=== PATIENT | female | born 1980 | race Caucasian/White ===

== ENCOUNTER 2017-12-01 13:57 | Emergency (ER) | payer OTHER ==
[2017-12-01 14:28] VITALS: BP 114/82
--- NOTE | 2017-12-01 16:26 | UC ---
Reyna Fofana Emily, scribed for Heladio Nelson MD on 12/01/17 at 1456 . Respiratory Complaint HPI - HPI Summary HPI Summary: This patient is a 37 year old F presenting to urgent care accompanied by family with a chief complaint of bilateral cough with yellow sputum that began 1 month ago. The patient rates the pain 6/10 in severity. Symptoms aggravated by nothing. Symptoms alleviated by nothing. Patient reports sore throat, bilateral ear pain, sinus congestion, chest congestion, and wheezing. Pt reports finishing an amoxicillin course 1 week ago. - History of Current Complaint Chief Complaint: UCRespiratory Stated Complaint: THROAT Time Seen by Provider: 12/01/17 14:34 Hx Obtained From: Patient Hx Last Menstrual Period: 10/08/2017 Onset/Duration: Sudden Onset, Lasting Weeks, Still Present Timing: Constant Severity Initially: Moderate Severity Currently: Moderate Pain Intensity: 6 Pain Scale Used: 0-10 Numeric Character: Cough: Productive, Sputum Description: - Yellow Aggravating Factors: Nothing Alleviating Factors: Nothing Associated Signs And Symptoms: Positive: Pleuritic Chest Pain, Wheezing, Nasal Congestion - Allergies/Home Medications Allergies/Adverse Reactions: Allergies Allergy/AdvReac Type Severity Reaction Status Date / Time metoclopramide [From Reglan] Allergy See Comment Verified 12/01/17 14:28 Home Medications: Home Medications Escitalopram Oxalate [Lexapro 20 mg] 20 mg PO DAILY 12/01/17 [History Confirmed 12/01/17] Gabapentin [Neurontin] 300 mg PO TID 12/01/17 [History Confirmed 12/01/17] PMH/Surg Hx/FS Hx/Imm Hx Previously Healthy: Yes Cardiovascular History: Other Other Cardiovascular History: Negative Cancer History: Other Other Cancer History: Negative - Surgical History Surgery Procedure, Year, and Place: TONSILLECTOMY. DNC X2 - Family History Known Family History: Positive: Hypertension - Social History Occupation: Employed Full-time Lives: With Family Alcohol Use: None Substance Use Type: None Substance Use Comment - Amount & Last Used: is in recovery, has been "clean" for 3 years. Smoking Status (MU): Heavy Every Day Tobacco Smoker Amount Used/How Often: 1 PPD Review of Systems ENT: Sore Throat, Ear Ache, Sinus Congestion Respiratory: Cough, Other - Positive chest congestion and wheezing All Other Systems Reviewed And Are Negative: Yes Physical Exam - Summary Physical Exam Summary: General: well-appearing, no pain distress Skin: warm, color reflects adequate perfusion, dry Head: normal Eyes: EOMI, TIFFANI ENT: Positive rhinorrhea, nml TMs, mild posterior pharynx erythema, anterior cervical lymphadenopathy Neck: supple, nontender Respiratory: scattered wheezes, breath sounds present Cardiovascular: RRR Abdomen: soft, nontender Bowel: present Musculoskeletal: normal, strength/ROM intact Neurological: normal, sensory/motor intact, A&O x3 Psychological: affect/mood appropriate Triage Information Reviewed: Yes Vital Signs: Initial Vital Signs Temp 98.5 F 12/01/17 14:22 Pulse 99 12/01/17 14:22 Resp 18 12/01/17 14:22 BP 114/82 12/01/17 14:22 Pulse Ox 100 12/01/17 14:22 Vital Signs Reviewed: Yes UC Diagnostic Evaluation - Laboratory O2 Sat by Pulse Oximetry: 100 Respiratory Course/Dx - Course Course Of Treatment: BP noted and advised to follow up with PCP. Medications reviewed. Allergies reviewed - Differential Dx/Diagnosis Provider Diagnoses: BRONCHITIS WITH BRONCHOSPASM. Elevated BP without a dx of HTN Discharge - Discharge Plan Condition: Stable Disposition: HOME Prescriptions: Albuterol HFA INHALER* [Ventolin HFA Inhaler*] 2 puff INH Q4H PRN #1 mdi PRN Reason: Wheezing Azithromyxin TRAVON (NF) [Z-Travon (Zithromax) 250 mg tabs #6] 2 tab PO .TODAY, THEN 1 DAILY #6 tab Patient Education Materials: Acute Bronchitis (ED), Bronchospasm (ED) Referrals: Alix Smith [employer] [Primary Care Provider] - Additional Instructions: FOLLOW UP WITH YOUR DOCTOR. RETURN TO THE EMERGENCY DEPARTMENT FOR ANY WORSENING OF YOUR CONDITION OR QUESTIONS OR CONCERNS. YOUR BLOOD PRESSURE WAS ELEVATED DURING TODAY'S VISIT; FOLLOW UP WITH YOUR PCP WITHIN ONE WEEK FOR FURTHER EVALUATION. The documentation as recorded by the Reyna betts Emily accurately reflects the service I personally performed and the decisions made by me, Heladio Nelson MD.
== END 2017-12-01 15:22 | disposition home or self-care (01) ==
LOC: UCEAST 13:57
DX: J20.9 Acute bronchitis, unspecified (principal); R03.0 Elevated blood-pressure reading, without diagnosis of hypertension; H92.03 Otalgia, bilateral; R09.81 Nasal congestion; Z88.8 Allergy status to other drugs, medicaments and biological substances
CPT/HCPCS: 99212; G0463

== ENCOUNTER 2018-01-28 16:39 | Emergency (ER) | payer SELFPAY ==
--- NOTE | 2018-01-28 17:14 | UC ---
UC Dental HPI - HPI Summary HPI Summary: Pt presents with dental pain to right lower tooth. Says that she has a bad tooth here that she knows she needs to see the dentist for, but has been increasing in pain over the last 4-5 days. Noticed some swelling and drainage from the bottom of the tooth yesterday - thinks its infected. Still eating and drinking without difficulty. Denies fever/chills. - History of Current Complaint Hx Obtained From: Patient Hx Last Menstrual Period: 01/22/2018 Onset/Duration: Gradual Onset Severity: Moderate Pain Intensity: 6 Pain Scale Used: 0-10 Numeric <Basilio Gordillo - Last Filed: 01/28/18 18:08> <Sveta Gallo - Last Filed: 01/28/18 20:12> - History of Current Complaint Chief Complaint: UCGeneralIllness Stated Complaint: DENTAL COMPLAINT - Allergies/Home Medications Allergies/Adverse Reactions: Allergies Allergy/AdvReac Type Severity Reaction Status Date / Time metoclopramide [From Reglan] Allergy See Comment Verified 12/01/17 14:28 Home Medications: Home Medications Naproxen Sodium [Aleve] 01/28/18 [History] PMH/Surg Hx/FS Hx/Imm Hx Respiratory History: Asthma Psychological History: Anxiety - Surgical History Surgical History: None Surgery Procedure, Year, and Place: TONSILLECTOMY. DNC X2 - Family History Known Family History: Positive: Hypertension - Social History Lives: With Family Alcohol Use: None Substance Use Type: None Substance Use Comment - Amount & Last Used: is in recovery, has been "clean" for 3 years. Smoking Status (MU): Heavy Every Day Tobacco Smoker Amount Used/How Often: 1 PPD <Basilio Gordillo - Last Filed: 01/28/18 18:08> Review of Systems Constitutional: Negative Skin: Negative Eyes: Negative ENT: Dental Pain Respiratory: Negative Cardiovascular: Negative Neurovascular: Negative Musculoskeletal: Negative Neurological: Negative Psychological: Negative All Other Systems Reviewed And Are Negative: Yes <Basilio Gordillo - Last Filed: 01/28/18 18:08> Physical Exam Triage Information Reviewed: Yes Appearance: Well-Appearing, No Pain Distress, Well-Nourished Vital Signs: Initial Vital Signs Temp 97.4 F 01/28/18 17:03 Pulse 84 01/28/18 17:03 Resp 16 01/28/18 17:03 BP 107/70 01/28/18 17:03 Pulse Ox 99 01/28/18 17:03 Eyes: Positive: Conjunctiva Clear. Negative: Conjunctiva Inflamed, Discharge ENT: Positive: Pharynx normal, TMs normal, Dental tenderness - Tooth 29, Uvula midline. Negative: Pharyngeal erythema, TM bulging, TM dull, TM red Dental: Positive: Percussion Tenderness @ - Tooth 29, Gross Decay/Caries @ - Throughout, Dental Fracture @ - Tooth 29, Abscess @ - Tooth 29, Cellulitis @ - Tooth 29. Negative: Cervical Lymphadenopathy, Bleeding Neck: Positive: Supple, Nontender, No Lymphadenopathy Respiratory: Positive: Lungs clear, Normal breath sounds, No respiratory distress, No accessory muscle use Cardiovascular: Positive: RRR, No Murmur, Pulses Normal Neurological: Positive: Alert Psychological: Positive: Age Appropriate Behavior Skin: Negative: rashes <Basilio Gordillo - Last Filed: 01/28/18 18:08> Vital Signs: Initial Vital Signs Temp 97.4 F 01/28/18 17:03 Pulse 84 01/28/18 17:03 Resp 16 01/28/18 17:03 BP 107/70 01/28/18 17:03 Pulse Ox 99 01/28/18 17:03 <Sveta Gallo - Last Filed: 01/28/18 20:12> Dental Complaint Course/Dx - Course Course Of Treatment: Dental abscess Tooth 29 - Augmentin and f/u with dentist LAUREEN - Differential Dx/Diagnosis Provider Diagnoses: Dental abscess Tooth 29 <Basilio Gordillo - Last Filed: 01/28/18 18:08> Discharge - Sign-Out/Discharge Documenting (check all that apply): Discharge/Admit/Transfer - Billing Disposition and Condition Condition: STABLE Disposition: HOME <Basilio Gordillo - Last Filed: 01/28/18 18:08> - Billing Disposition and Condition Condition: STABLE Disposition: HOME <Sveta Gallo - Last Filed: 01/28/18 20:12> - Discharge Plan Condition: Stable Disposition: HOME Prescriptions: Amoxicillin/Clavulanate TAB* [Augmentin TAB 875*] 875 mg PO BID #14 tab Patient Education Materials: Dental Abscess (ED) Referrals: Kenny MALDONADO,Vinayak F. [Primary Care Provider] - Additional Instructions: If you develop a fever, shortness of breath, chest pain, new or worsening symptoms - please call your PCP or go to the ED. 1) Please schedule an appointment with your dentist as soon as possible Attestation Statement User Type: Provider - I was available for consult. This patient was seen by the KRISTA. The patient was not presented to, seen by, or examined by me. -Ryley <Sveta Gallo - Last Filed: 01/28/18 20:12>
[2018-01-28 17:27] VITALS: BP 107/70
== END 2018-01-28 17:49 | disposition home or self-care (01) ==
LOC: UCEAST 16:39
DX: K04.7 Periapical abscess without sinus (principal); J45.909 Unspecified asthma, uncomplicated; F41.9 Anxiety disorder, unspecified; Z88.8 Allergy status to other drugs, medicaments and biological substances; F17.210 Nicotine dependence, cigarettes, uncomplicated
CPT/HCPCS: 99212; G0463

== ENCOUNTER 2018-07-02 23:15 | Inpatient (IN) | payer OTHER ==
[2018-07-03] MEDS ORDERED: NS 0.9% 1000 ML* 1,000 ML IV ONE ×2 (01:23→02:01)
--- NOTE | 2018-07-03 01:38 | ED ---
Throat Pain/Nasal Congestion - HPI Summary HPI Summary: Complains of mouth lesions, dental pain x 4 days, being told by dentist she has oral cancer and being told by [facility] ED that she has acute renal failure. Patient went to [facility] ED today for dental pain and left [facility] ED early to go turkey picker her son and was called later and told she had acute renal failure. Denies fever, cough, sore throat, CP, SOB, N/V/D, abdominal pain, change in urine, change in BM. Medical history is anxiety depression. An anonymous call was placed to ED stating patient Markus Blancas was taking crocodil. - History of Current Complaint Chief Complaint: EDGeneral Time Seen by Provider: 07/03/18 01:04 Hx Obtained From: Patient Onset/Duration: Gradual Onset, Lasting Days Severity: Severe Associated Signs And Symptoms: Positive: Negative Cough: None - Allergies/Home Medications Allergies/Adverse Reactions: Allergies Allergy/AdvReac Type Severity Reaction Status Date / Time metoclopramide [From Reglan] Allergy See Comment Verified 07/02/18 23:21 PMH/Surg Hx/FS Hx/Imm Hx Endocrine/Hematology History: Denies: Hx Diabetes Cardiovascular History: Denies: Hx Hypertension Respiratory History: Denies: Hx Chronic Obstructive Pulmonary Disease (COPD) History: Denies: Hx Dialysis Neurological History: Denies: Hx CVA - Surgical History Surgery Procedure, Year, and Place: TONSILLECTOMY. DNC X2 Infectious Disease History: No Infectious Disease History: Denies: Traveled Outside the [place] in Last 30 Days - Family History Known Family History: Positive: Hypertension - Social History Alcohol Use: None Substance Use Type: Reports: Marijuana Substance Use Comment - Amount & Last Used: is in recovery, has been "clean" for 3 years. Smoking Status (MU): Heavy Every Day Tobacco Smoker Amount Used/How Often: 1 PPD Review of Systems Constitutional: Negative Eyes: Negative Positive: Dental Pain Cardiovascular: Negative Respiratory: Negative Gastrointestinal: Negative Genitourinary: Negative Musculoskeletal: Negative Positive: Rash, Bruising Neurological: Negative Positive: Anxious All Other Systems Reviewed And Are Negative: Yes Physical Exam - Summary Physical Exam Summary: Patient has multiple white lesions in her mouth along bilateral lateral border of tongue, bilateral posterior columns, vesicular lesions along the nuchal membrane under superior and inferior lip.. Multiple areas of probable bruising on bilateral lower extremities. Patient is extremely fidgety. Alert and oriented, responding appropriately. Abdomen soft nontender. Lung sounds clear to auscultation bilaterally. Triage Information Reviewed: Yes Vital Signs On Initial Exam: Initial Vitals Temp Pulse Resp BP Pulse Ox 98.4 F 116 22 132/110 98 07/02/18 23:16 07/02/18 23:16 07/02/18 23:16 07/02/18 23:16 07/02/18 23:16 Vital Signs Reviewed: Yes Appearance: Positive: Well-Appearing Skin: Positive: Warm Head/Face: Positive: Normal Head/Face Inspection Eyes: Positive: Normal ENT: Negative: Trismus, Muffled voice Dental: Positive: Other Neck: Positive: Supple Respiratory/Lung Sounds: Positive: Clear to Auscultation Cardiovascular: Positive: Normal Abdomen Description: Positive: Nontender Musculoskeletal: Positive: Normal Neurological: Positive: Normal Psychiatric: Positive: Normal AVPU Assessment: Alert - [place] Coma Scale Best Eye Response: 4 - Spontaneous Best Motor Response: 6 - Obeys Commands Best Verbal Response: 5 - Oriented Coma Scale Total: 15 Diagnostics - Vital Signs Vital Signs Temp Pulse Resp BP Pulse Ox 07/03/18 01:07 98 96 07/02/18 23:16 98.4 F 116 22 132/110 98 - Laboratory Result Diagrams: 07/03/18 01:46 07/03/18 01:46 Lab Statement: Any lab studies that have been ordered have been reviewed, and results considered in the medical decision making process. - Radiology cxr Xray Interpretation: No Acute Changes Radiology Interpretation Completed By: ED Physician EENT Course/Dx - Course Course Of Treatment: Complains of mouth lesions, dental pain x 4 days, being told by dentist she has oral cancer and being told by [facility] ED that she has acute renal failure. Patient went to [facility] ED today for dental pain and left [facility] ED early to go turkey picker her son and was called later and told she had acute renal failure. Denies fever, cough, sore throat, CP, SOB, N/ V/D, abdominal pain, change in urine, change in BM. Medical history is anxiety depression. An anonymous call was placed to ED stating patient Marksu Blancas was taking crocodil. Physical exam:Patient has multiple white lesions in her mouth along bilateral lateral border of tongue, bilateral posterior columns, vesicular lesions along the nuchal membrane under superior and inferior lip.. Multiple areas of probable bruising on bilateral lower extremities. Patient is extremely fidgety. Alert and oriented, responding appropriately. Abdomen soft nontender. Lung sounds clear to auscultation bilaterally. Vital signs within normal limits. CK 1751. Creatinine 1.8. Elevated CRP. White count 18. Patient given 2 L of fluid. Diagnosis rhabdomyolysis, acute renal insufficiency , thrush. - Diagnoses Provider Diagnoses: Rhabdomyolysis, Acute renal insufficiency, Thrush Discharge - Sign-Out/Discharge Documenting (check all that apply): Patient Departure - Discharge Plan Condition: Stable Disposition: ADMITTED TO [facility] Referrals: No Primary Care Phys,NOPCP [Primary Care Provider] - - Billing Disposition and Condition Condition: STABLE Disposition: Admitted to [facility]
[2018-07-03 01:58] LABS: Hematocrit 37 % (35-47); Hemoglobin 12.5 g/dl (12.0-16.0); Mean Corpuscular HGB Conc 34 g/dl (31-36); Mean Corpuscular Hemoglobin 29 pg (27-31); Mean Corpuscular Volume 86 fL (80-97); Mean Platelet Volume 8.4 um3 (7.4-10.4); Platelet Count 278 10^3/ul (150-450); Red Blood Count 4.26 10^6/ul (4.00-5.40); Red Cell Distribution Width 14 % (10.5-15); White Blood Count 18.8 10^3/ul (3.5-10.8)
[2018-07-03 02:05] LABS: ABS Neutrophils 16.2 10^3/ul (1.5-7.7)
[2018-07-03 02:18] LABS: EGFR Non-African American 31.5 (>60)
[2018-07-03 02:21] LABS: ABS Basophils 0.2 10^3/ul (0-0.2); ABS Eosinophils 0.1 10^3/ul (0-0.6); ABS Lymphocytes 0.6 10^3/ul (1.0-4.8); ABS Monocytes 1.8 10^3/ul (0-0.8); ABS Nucleated RBC 0 10^3/ul; Eosinophil % 0.3 % (0-6); Lymphocyte % 3.2 % (25-47); Nucleated Red Blood Cells % 0
[2018-07-03] MEDS ORDERED: Mouth Piece, Nicotine* 1 EACH CARTRIDGE INH PRN (04:46)
[2018-07-03] MEDS ORDERED: Nicotine Inhaler* 10 MG AMP INH PRN (04:46)
--- NOTE | 2018-07-03 04:51 | HP ---
H&P (Free Text) History and Physical: PCP: none Date/Time: 07/03/2018 0410 CC: abnormal labs HPI: Mrs Blancas is a 38YO obese female HX IV drug abuse who claims 6 years sobriety up until this past weekend when she snorted cocaine. She is very fidgety and exceedingly tangential making obtaining a history challenging. For some reason she cannot fully explain she was at [facility] Sunday having labs drawn. This may have been an ED visit for oral pain related to a tooth extraction done on Sunday. At any rate after leaving, she was called and informed her renal function was poor and recommended returning to the ED. As at the time [facility] was closer to her, she came here. At one point she states the dentist told her she had oral cancer, but denies any biopsy having been done. She has painless necrosis of multiple fingertips which she is adamant is due to "digging at my sharp teeth". She endorses subjective F/C, sweats, light-headedness, and oral pain, but denies chest pain, SOB, changes in bowel/bladder, or other issues. At one point she told me she moved this past weekend after learning her had cheated on her, but at another time stated that she "didn't really move" when I was attempting to clarify the extent of lifting/carrying as her total CK is elevated. PMedHx polysubstance abuse, ongoing/relapsed Ambulatory Orders Escitalopram Oxalate [Lexapro 20 mg] 20 mg PO DAILY 12/01/17 Gabapentin [Neurontin] 800 mg PO TID 12/01/17 Klonopin TAB(*) 1 mg PO BEDTIME 07/03/18 Ranitidine TAB (NF) 150 mg PO DAILY 07/03/18 Suboxone 4 mg-1 mg Sl Film 1 tab PO DAILY 07/03/18 Allergies metoclopramide [From Reglan] Allergy (Verified 07/03/18 03:08) numbness to legs and difficulty breathing PSurgHx tonsillectomy SocHx: 1PPD cigarettes, denies alcohol, admits to recent snorted cocaine with history of meth/heroine/crack; full code status FamHx: denies any known family medical history ROS: as above, otherwise reviewed and all were negative vitals: Vital Signs Temp 36.9 C 07/02/18 23:16 Pulse 98 07/03/18 01:07 Resp 22 07/02/18 23:16 BP 132/110 07/02/18 23:16 Pulse Ox 96 07/03/18 01:07 Intake & Output 07/02/18 07/02/18 07/03/18 11:59 23:59 11:59 Intake Total 1999 Balance 1999 Weight 74.843 kg Intake: IV Fluids 1999 Constitutional: NAD, normally developed, unkempt obese white female HEENM: atraumatic; sclera/conjunctiva: anicteric/mildly injected OU; hearing: clinically intact; oropharynx: very poor dentition, pharyngeal erythema with sporadic whitish plaques, R oral angle with ring-like centrally clearing erythematous scaling lesion Neck: soft tissue: no nuchal rigidity; thyroid: normal Pulmonary: clear to auscultation bilaterally, good aeration, no accessory muscle use CV: RR/RR, normal S1S2, no carotid bruit, no jugular venous distention, 2+ B DP/ PT, no edema Abdominal: soft, non-distended, non-tender, no rebound/guarding/rigidity, normoactive bowel sounds, no hepatosplenomegaly or masses, no costovertebral angle tenderness Musculoskeletal: general: grossly intact, non-tender Integumental: as above, multiple fingertips L>R with painless necrosis, bruising scattered of various ages Psychiatric orientation: AA&O to PP, loosely to situation affect: agitated/fidgety mood: cooperative to mildly confrontational eye contact: fair to poor content: unreliable responses: timely, but highly tangential insight: poor Testing: Lab Results 07/03/18 07/03/18 07/03/18 Range/Units 01:46 01:46 01:46 WBC 18.8 H (3.5-10.8) 10^3/ul RBC 4.26 (4.00-5.40) 10^6/ul Hgb 12.5 (12.0-16.0) g/dl Hct 37 (35-47) % MCV 86 (80-97) fL MCH 29 (27-31) pg MCHC 34 (31-36) g/dl RDW 14 (10.5-15) % Plt Count 278 (150-450) 10^3/ul MPV 8.4 (7.4-10.4) um3 Neut % (Auto) 86.0 H (38-83) % Lymph % (Auto) 3.2 L (25-47) % [place] % (Auto) 9.3 H (0-7) % Eos % (Auto) 0.3 (0-6) % Baso % (Auto) 1.2 (0-2) % Absolute Neuts (auto) 16.2 H (1.5-7.7) 10^3/ul Absolute Lymphs (auto) 0.6 L (1.0-4.8) 10^3/ul Absolute Monos (auto) 1.8 H (0-0.8) 10^3/ul Absolute Eos (auto) 0.1 (0-0.6) 10^3/ul Absolute Basos (auto) 0.2 (0-0.2) 10^3/ul Absolute Nucleated RBC 0 10^3/ul Nucleated RBC % 0 Sodium 135 (135-145) mmol/L Potassium 3.5 (3.5-5.0) mmol/L Chloride 105 (101-111) mmol/L Carbon Dioxide 19 L (22-32) mmol/L Anion Gap 11 (2-11) mmol/L BUN 21 (6-24) mg/dL Creatinine 1.81 H (0.51-0.95) mg/dL Est GFR ( Amer) 38.1 (>60) Est GFR (Non-Af Amer) 31.5 (>60) BUN/Creatinine Ratio 11.6 (8-20) Glucose 121 H (70-100) mg/dL Lactic Acid 0.6 (0.5-2.0) mmol/L Calcium 9.2 (8.6-10.3) mg/dL Total Bilirubin 0.80 (0.2-1.0) mg/dL AST 91 H (13-39) U/L ALT 60 H (7-52) U/L Alkaline Phosphatase 116 H (34-104) U/L Total Creatine Kinase 1751 H (10-223) U/L C-Reactive Protein 271.79 H (<8.01) mg/L Total Protein 7.1 (6.4-8.9) g/dL Albumin 4.2 (3.2-5.2) g/dL Globulin 2.9 (2-4) g/dL Albumin/Globulin Ratio 1.4 (1-3) Lipase < 10 L (11.0-82.0) U/L Beta HCG, Quant 0.70 mIU/mL HIV 1&2 Antibody Rapid (Nonreactive) 07/03/18 Range/Units 01:46 WBC (3.5-10.8) 10^3/ul RBC (4.00-5.40) 10^6/ul Hgb (12.0-16.0) g/dl Hct (35-47) % MCV (80-97) fL MCH (27-31) pg MCHC (31-36) g/dl RDW (10.5-15) % Plt Count (150-450) 10^3/ul MPV (7.4-10.4) um3 Neut % (Auto) (38-83) % Lymph % (Auto) (25-47) % [place] % (Auto) (0-7) % Eos % (Auto) (0-6) % Baso % (Auto) (0-2) % Absolute Neuts (auto) (1.5-7.7) 10^3/ul Absolute Lymphs (auto) (1.0-4.8) 10^3/ul Absolute Monos (auto) (0-0.8) 10^3/ul Absolute Eos (auto) (0-0.6) 10^3/ul Absolute Basos (auto) (0-0.2) 10^3/ul Absolute Nucleated RBC 10^3/ul Nucleated RBC % Sodium (135-145) mmol/L Potassium (3.5-5.0) mmol/L Chloride (101-111) mmol/L Carbon Dioxide (22-32) mmol/L Anion Gap (2-11) mmol/L BUN (6-24) mg/dL Creatinine (0.51-0.95) mg/dL Est GFR ( Amer) (>60) Est GFR (Non-Af Amer) (>60) BUN/Creatinine Ratio (8-20) Glucose (70-100) mg/dL Lactic Acid (0.5-2.0) mmol/L Calcium (8.6-10.3) mg/dL Total Bilirubin (0.2-1.0) mg/dL AST (13-39) U/L ALT (7-52) U/L Alkaline Phosphatase (34-104) U/L Total Creatine Kinase (10-223) U/L C-Reactive Protein (<8.01) mg/L Total Protein (6.4-8.9) g/dL Albumin (3.2-5.2) g/dL Globulin (2-4) g/dL Albumin/Globulin Ratio (1-3) Lipase (11.0-82.0) U/L Beta HCG, Quant mIU/mL HIV 1&2 Antibody Rapid Nonreactive (Nonreactive) ECG, personally reviewed: sinus RBBB rate 94, no ischemia CXR, personally reviewed: no acute process Impression: 38YO female HX polysubstance abuse presenting with renal dysfunction of uncertain acuteness along with an elevated total CK and likely either currently intoxicated or withdrawing. DIAGNOSIS & PLAN Primary necrotic fingertips : although painless, concerning for endocarditis; ? Krokodil although patient denies : blood CXs : check ECHO : empiric vancomycin & cefepime IV renal dysfunction : renal US in AM : renal diet : IVFs, trend : consider nephrology consult pending above : avoid nephrotoxic agents rhabdomyolysis : IVFs, trend total CK polysubstance abuse, active : safety monitor w/ behavioral disturbance : continue suboxone elevated ALT/AST : check hepatitis titers, trend oral & barbi-oral candidiasis : check HIV : ketoconazole PO : consider ID consult Secondary tobacco use disorder : nicotine replacement : cessation recommended, no motivation Admission Rational: Inpatient as without the above interventions the risk of impending adverse outcome is unacceptably high; inappropriate for the outpatient setting DVTp: MAG Code Status: full
[2018-07-03] MEDS ORDERED: Melatonin 3 MG TAB PO PRN (04:58)
[2018-07-03] MEDS ORDERED: Acetaminophen TAB* 325 MG PO PRN (04:58)
[2018-07-03] MEDS ORDERED: Ondansetron ODT TAB* 4 MG PO PRN (04:58)
[2018-07-03] MEDS ORDERED: Fluconazole 100 MG TAB* TAB PO SCH (05:00)
[2018-07-03] MEDS ORDERED: Vancomycin per Pharmacy* NOTE FOLLOW UP SCH (05:00)
[2018-07-03] MEDS ORDERED: Cefepime(*) 1 GM in NS 0.9% 50 ML* 50 ML IVPB SCH (05:00)
[2018-07-03] MEDS ORDERED: Cefepime(*) 2 GM in NS 0.9% 50 ML* 50 ML IVPB SCH (05:30)
[2018-07-03] MEDS: Omeprazole CAP* 20 MG PO SCH (05:52)
[2018-07-03] MEDS: NS 0.9% 1000 ML* 1,000 ML IV SCH (05:57)
[2018-07-03] MEDS ORDERED: Vancomycin(*) 1,000 MG in NS 0.9% 250 ML* 250 ML IVPB ONE (06:00)
[2018-07-03 07:35] LABS: Urine Appearance Clear; Urine Blood 2+ (Negative); Urine Color Yellow; Urine Ketones Negative (Negative); Urine Protein Negative (Negative); Urine Specific Gravity 1.013 (1.010-1.030); Urine Urobilinogen Negative (Negative)
--- NOTE | 2018-07-03 07:42 | RAD ---
HISTORY: sob COMPARISONS: None VIEWS: 1: frontal portable view of the chest at 2:10 AM FINDINGS: LINES AND TUBES: None. CARDIOMEDIASTINAL SILHOUETTE: The cardiomediastinal silhouette is normal for portable technique. PLEURA: The costophrenic angles are sharp. No pleural abnormalities are noted. LUNG PARENCHYMA: The lungs are clear. ABDOMEN: The upper abdomen is clear. There is no subphrenic gas. BONES AND SOFT TISSUES: No bone or soft tissue abnormalities are noted. IMPRESSION: NO ACTIVE CARDIOPULMONARY DISEASE. R0
[2018-07-03 07:46] LABS: Urine Red Blood Cell Trace(0-2/hpf) (Absent); Urine White Blood Cell Trace(0-5/hpf) (Absent)
--- NOTE | 2018-07-03 07:47 | RAD ---
INDICATION: Renal dysfunction. COMPARISON: There are no relevant prior studies available for comparison. TECHNIQUE: Multiple real-time images of the kidneys were obtained. FINDINGS: The kidneys are normal in size shape and echogenicity. The right kidney measured 11.2 x 4.2 x 4.7 cm and the left kidney measured 11.2 x 4.2 x 4.3 cm. No significant focal abnormality or hydronephrosis is seen. IMPRESSION: NEGATIVE EXAM.
[2018-07-03 08:01] LABS: ABS Basophils 0 10^3/ul (0-0.2); ABS Eosinophils 0.1 10^3/ul (0-0.6); ABS Lymphocytes 0.9 10^3/ul (1.0-4.8); ABS Neutrophils 9.1 10^3/ul (1.5-7.7); ABS Nucleated RBC 0 10^3/ul; Eosinophil % 0.7 % (0-6); Hematocrit 32 % (35-47); Hemoglobin 10.6 g/dl (12.0-16.0); Lymphocyte % 8.2 % (25-47); Mean Corpuscular HGB Conc 34 g/dl (31-36); Mean Corpuscular Hemoglobin 29 pg (27-31); Mean Corpuscular Volume 88 fL (80-97); Mean Platelet Volume 8.3 um3 (7.4-10.4); Nucleated Red Blood Cells % 0; Platelet Count 228 10^3/ul (150-450); Red Blood Count 3.61 10^6/ul (4.00-5.40); Red Cell Distribution Width 14 % (10.5-15); White Blood Count 11.2 10^3/ul (3.5-10.8)
[2018-07-03 08:20] LABS: EGFR Non-African American 56.5 (>60)
--- NOTE | 2018-07-03 09:00 | ECHO ---
Patient: RANJANA MARIE [facility] Rec#: [id number] : 1980 Date: 07/03/2018 Age: 38y Height: 160.02 cm / 63.0 in Weight: 74.84 kg / 164.9 lbs Sex: F BSA: 1.78 Room#: 417 Admit Date#: 07/03/2018 Type: Inpatient Referring: Juan Flores MD Reading: Gail Keller MD Campus Recruiter[facility] Tran[facility]horacic Echocardiogram Indication: Valvular disease BP: 124/64 HR: 94 Rhythm: NSR Findings History: Polysubstance use, smoker, acute renal failure. Technical Comments: The study quality is good. Completed at 0830. Left Ventricle: The left ventricular chamber size is normal. There is no left ventricular hypertrophy. Global left ventricular wall motion and contractility are within normal limits. There is normal left ventricular systolic function. The estimated ejection fraction is 60-65%. There is no consistent Doppler evidence of clinically significant diastolic dysfunction. Left Atrium: The left atrium is mildly dilated. Right Ventricle: The right ventricular cavity size is normal. The right ventricular global systolic function is normal. Right Atrium: The right atrium is mildly dilated. Aortic Valve: The aortic valve is trileaflet. The aortic valve leaflets are mildly thickened. There is a trace of aortic regurgitation. There is no evidence of aortic stenosis. Mitral Valve: The mitral valve leaflets are mildly thickened. There is trace to mild mitral regurgitation. There is no evidence of mitral stenosis. Tricuspid Valve: The tricuspid valve leaflets are mildly thickened. There is mild tricuspid regurgitation. The right ventricular systolic pressure is estimated at 38 mmHg. There is evidence of mild pulmonary hypertension. There is no tricuspid stenosis. Pulmonic Valve: The pulmonic valve appears normal. There is mild pulmonic regurgitation. There is no pulmonic stenosis. Pericardium: There is no significant pericardial effusion. Aorta: There is no dilatation of the ascending aorta. There is no dilatation of the aortic arch. The aortic root is normal in size. Pulmonary Artery: The main pulmonary artery is not well visualized. Venous: The inferior vena cava is dilated. There is a greater than 50% respiratory change in the inferior vena cava dimension. Conclusions The left ventricular chamber size is normal. Global left ventricular wall motion and contractility are within normal limits. The estimated ejection fraction is 60-65%. Mild biatrial enlargement. The right ventricular global systolic function is normal. There is a trace of aortic regurgitation. There is trace to mild mitral regurgitation. There is mild tricuspid regurgitation. There is evidence of mild pulmonary hypertension: estimated at 38 mmHg. No prior echo to compare. Measurements Name Value Normal Range RVIDd (AP) 2D 2.5 cm (0.9 - 2.6) RVDdMajor (2D) 3.3 cm (2.2 - 4.4) RAd ISD 4CH 5 cm (3.4 - 4.9) RA (A4C)W 4.1 cm (2.9 - 4.6) IVSd (2D) 1 cm (0.6 - 1) LVPWd (2D) 0.7 cm (0.6 - 1) LVIDd (2D) 5.2 cm (3.6 - 5.4) LVIDs (2D) 3 cm - LV FS (2D) 43 % (25 - 45) Aortic Annulus 1.8 cm (1.4 - 2.6) Ao root diameter (2D) 2.5 cm (2.1 - 3.5) Ascending Ao 2.9 cm (2.1 - 3.4) Aortic arch 2.1 cm (1.8 - 3.4) LA dimension (AP) 2D 4.1 cm (2.3 - 3.8) LAd ISD 4CH 4.9 cm (2.9 - 5.3) LA ISD 4CH W 4 cm (2.5 - 4.5) Name Value Normal Range LA ESV SP 4CH (A/L) 62 ml - LA ESV SP 2CH (A/L) 70 ml - LA ESV BP (A/L) 68 ml - LA ESV BP (A/L) index 38 ml/m2 - LA ESV SP 4CH (MOD) 58 ml - LA ESV SP 2CH (MOD) 66 ml - Name Value Normal Range MV E-wave Vmax 1.05 m/sec - MV deceleration time 192.3 msec - MV A-wave Vmax 0.82 m/sec - MV E:A ratio 1.2 ratio - LV septal e' Vmax 0.12 m/sec - LV lateral e' Vmax 0.13 m/sec - LV E:e' septal ratio 8.75 ratio - LV E:e' lateral ratio 8.08 ratio - Name Value Normal Range AV Vmax 1.8 m/sec - AV VTI 37.35 cm - AV peak gradient 12.31 mmHg - AV mean gradient 6.77 mmHg - LVOT Vmax 1.41 m/sec - LVOT VTI 30.52 cm - LVOT peak gradient 8.04 mmHg - LVOT mean gradient 4.93 mmHg - KAMRAN Vmax 1.3 m/sec - Name Value Normal Range TR Vmax 2.7 m/sec - TR peak gradient 30 mmHg - RAP 8 mmHg - RVSP 38 mmHg - IVC diameter 2.2 cm - Name Value Normal Range PV Vmax 0.82 m/sec - PV peak gradient 2.69 mmHg -
[2018-07-03] MEDS: Gabapentin CAP(*) 400 MG PO SCH ×3 (09:06→21:33)
[2018-07-03] MEDS: Citalopram TAB* 40 MG PO SCH (09:08)
[2018-07-03] MEDS: Buprenorphine/Naloxone 8-2 MG SL TAB* 1 TAB PO SCH (09:13)
[2018-07-03] MEDS ORDERED: NS 0.9% 1000 ML* 2,000 ML IV ONE (12:12)
[2018-07-03] MEDS: Nystatin SUSPENSION* 100000 UNITS/ML 5 ML UDC PO SCH ×3 (14:32→21:39)
[2018-07-03] MEDS: Vancomycin(*) 1,000 MG in NS 0.9% 250 ML* 250 ML IVPB SCH ×2 (14:47→21:28)
[2018-07-03] MEDS ORDERED: Ketorolac INJ* 30 MG/ML 1 ML VIAL IV PUSH ONE (17:21)
[2018-07-03] MEDS ORDERED: Ketorolac INJ* 30 MG/ML 1 ML VIAL ONE (17:23)
--- NOTE | 2018-07-03 17:33 | PN ---
Subjective Date of Service: 07/03/18 Interval History: BP in 60s this AM without symptoms. Seen by this author and BP had improved to 85/58 which I manually checked after 100-200cc IVF. Remains difficult historian. Spends majority of time talking about her whom she blames for recent dx of HSV Otherwise, no SOB/CP, N/V, LH Does note pain in barbi oral region Objective Active Medications: Acetaminophen (Tylenol Tab*) 650 mg PO Q6H PRN PRN Reason: FEVER/PAIN Buprenorphine/Naloxone (Suboxone 8-2 Mg Sl Tab*) 0.5 tab.sl PO DAILY [facility] Last Admin: 07/03/18 09:13 Dose: 0.5 tab.sl Citalopram Hydrobromide (Celexa Tab*) 40 mg PO DAILY [facility] Last Admin: 07/03/18 09:08 Dose: 40 mg Clonazepam (Klonopin Tab(*)) 1 mg PO BEDTIME [facility] Device (Nicotine Mouth Piece*) 1 each INH .USE WITH NICOTROL PRN PRN Reason: CRAVING Last Admin: 07/03/18 05:54 Dose: 1 each Fluconazole (Diflucan 100 Mg Tab*) 100 mg PO DAILY [facility] Last Admin: 07/03/18 06:20 Dose: 100 mg Gabapentin (Neurontin Cap(*)) 800 mg PO TID [facility] Last Admin: 07/03/18 14:16 Dose: 800 mg Sodium Chloride (Ns 0.9% 1000 Ml*) 1,000 mls @ 125 mls/hr IV PER RATE [facility] Last Admin: 07/03/18 05:57 Dose: 125 mls/hr Cefepime HCl 2 gm/ Sodium (Chloride) 50 mls @ 100 mls/hr IVPB Q24H [facility] Last Admin: 07/03/18 06:04 Dose: 100 mls/hr Vancomycin HCl 1,000 mg/ (Sodium Chloride) 250 mls @ 166.667 mls/hr IVPB Q8H [facility] Last Admin: 07/03/18 14:47 Dose: 166.667 mls/hr Influenza Virus Vaccine (Fluarix *Quad* 2018-*) 0.5 ml IM .ONCE ONE Stop: 07/04/18 09:01 Melatonin (Melatonin) 3 mg PO BEDTIME PRN; Protocol PRN Reason: Sleep Nicotine (Nicotine Inhaler*) 10 mg INH Q2H PRN PRN Reason: CRAVING Last Admin: 07/03/18 05:55 Dose: 10 mg Nystatin (Nystatin Suspension*) 200,000 units PO QID [facility] Last Admin: 07/03/18 17:17 Dose: 200,000 units Omeprazole (Prilosec Cap*) 20 mg PO DAILY@0600 [facility] Last Admin: 07/03/18 05:52 Dose: 20 mg Ondansetron HCl (Zofran Odt Tab*) 4 mg PO Q6H PRN PRN Reason: n/v Pharmacy Consult (Vancomycin Per Pharmacy*) 1 note FOLLOW UP .VANC PER PHARMACY [facility] Pharmacy Profile Note (Vancomycin Trough Check) 1 note FOLLOW UP 1230 ONE Stop: 07/04/18 12:31 Vital Signs - 8 hr 07/03/18 07/03/18 07/03/18 11:39 11:56 12:01 Pulse Rate 74 Respiratory 18 16 Rate Blood Pressure 65/49 80/50 (mmHg) O2 Sat by Pulse 96 Oximetry 07/03/18 07/03/18 07/03/18 14:16 14:35 17:18 Pulse Rate 87 Respiratory 19 19 18 Rate Blood Pressure 112/78 (mmHg) O2 Sat by Pulse 99 Oximetry Oxygen Devices in Use Now: None Appearance: disheveled, sitting up, NAD Eyes: No Scleral Icterus, PERRLA Ears/Nose/Mouth/Throat: Mucous Membranes Moist, - - +thrush Neck: NL Appearance and Movements; NL JVP, Trachea Midline Respiratory: Symmetrical Chest Expansion and Respiratory Effort, - - scatter rhonchi Cardiovascular: NL Sounds; No Murmurs; No JVD, RRR Abdominal: NL Sounds; No Tenderness; No Distention, No Hepatosplenomegaly Lymphatic: No Cervical Adenopathy Extremities: No Edema Skin: - - bilateral necrosis of most of her finger tips, scattered ovoid areas of erthythema between 2-8mm on b/l thighs, hypopigmintation extending from right side of mouth about 5cm Neurological: Alert and Oriented x 3 Result Diagrams: 07/03/18 07:35 07/03/18 07:35 Assess/Plan/Problems-Billing Assessment: 38 yo F h/o polysubstance abuse presenting [place] [facility] [place] FAVIOLA, rhabdomyolysis found with b/l upper extremity distal finger necrosis - Patient Problems (1) FAVIOLA (acute kidney injury) Comment: improved with IVF suspect prerenal with polysubstance abuse and decrease PO over weekend c/w IVF (2) Rhabdomyolysis Comment: NS and recheck in AM suspect methamphetamines (3) 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
[2018-07-03] MEDS: Acetaminophen TAB* 325 MG PO PRN (21:35)
[2018-07-03] MEDS: clonazePAM TAB(*) 1 MG PO SCH (21:36)
[2018-07-03] MEDS: Heparin VIAL(*) 5000 UNITS/ML VIAL (FIVE THOUSAND) SUBCUT SCH (21:36)
[2018-07-03] MEDS: Lidocaine 2% VISCOUS* 15 ML UDC PO PRN (23:50)
[2018-07-04] MEDS: Vancomycin(*) 1,000 MG in NS 0.9% 250 ML* 250 ML IVPB SCH ×2 (05:08→14:36)
[2018-07-04] MEDS: Omeprazole CAP* 20 MG PO SCH (06:06)
[2018-07-04] MEDS: Lidocaine 2% VISCOUS* 15 ML UDC PO PRN ×3 (06:07→22:54)
[2018-07-04] MEDS: Heparin VIAL(*) 5000 UNITS/ML VIAL (FIVE THOUSAND) SUBCUT SCH ×3 (06:08→21:19)
[2018-07-04] MEDS ORDERED: Cefepime(*) 2 GM in NS 0.9% 50 ML* 50 ML IVPB SCH (07:30)
[2018-07-04] MEDS: Buprenorphine/Naloxone 8-2 MG SL TAB* 1 TAB PO SCH (08:17)
[2018-07-04] MEDS: Gabapentin CAP(*) 400 MG PO SCH ×3 (08:18→21:17)
[2018-07-04] MEDS: Citalopram TAB* 40 MG PO SCH (08:19)
[2018-07-04] MEDS: Nystatin SUSPENSION* 100000 UNITS/ML 5 ML UDC PO SCH ×4 (08:19→21:18)
[2018-07-04] MEDS: Acetaminophen TAB* 325 MG PO PRN (08:22)
[2018-07-04] MEDS: NS 0.9% 1000 ML* 1,000 ML IV SCH (08:23)
[2018-07-04 08:40] LABS: ABS Basophils 0 10^3/ul (0-0.2); ABS Eosinophils 0.3 10^3/ul (0-0.6); ABS Lymphocytes 2.1 10^3/ul (1.0-4.8); ABS Monocytes 0.6 10^3/ul (0-0.8); ABS Neutrophils 2.7 10^3/ul (1.5-7.7); ABS Nucleated RBC 0 10^3/ul; Eosinophil % 5.7 % (0-6); Hematocrit 30 % (35-47); Lymphocyte % 36.3 % (25-47); Mean Corpuscular HGB Conc 34 g/dl (31-36); Mean Corpuscular Hemoglobin 30 pg (27-31); Mean Corpuscular Volume 88 fL (80-97); Mean Platelet Volume 8.5 um3 (7.4-10.4); Nucleated Red Blood Cells % 0.1; Platelet Count 209 10^3/ul (150-450); Red Blood Count 3.36 10^6/ul (4.00-5.40); Red Cell Distribution Width 14 % (10.5-15); White Blood Count 5.8 10^3/ul (3.5-10.8)
[2018-07-04 08:47] LABS: EGFR Non-African American 81.9 (>60)
[2018-07-04] MEDS: Ketorolac INJ* 30 MG/ML 1 ML VIAL IV PUSH PRN ×2 (10:18→16:30)
[2018-07-04] MEDS: Nicotine PATCH 21 MG/24 HR* PATCH TRANSDERM SCH (11:48)
[2018-07-04] MEDS ORDERED: Vancomycin Trough Check NOTE FOLLOW UP ONE (12:30)
--- NOTE | 2018-07-04 17:05 | PN ---
Subjective Date of Service: 07/04/18 Interval History: Biggest complaint is pain in mouth Overall feels better since arrival Misses her son Became very upset and tearful when I asked if she has ever injected her suboxone. Was going to leave but was redirected and reported she would stay. Left floor to smoke cigarette. Nurse certified dietary manager spoke to pt after this event. Objective Active Medications: Acetaminophen (Tylenol Tab*) 650 mg PO Q6H PRN PRN Reason: FEVER/PAIN Last Admin: 07/04/18 08:22 Dose: 650 mg Buprenorphine/Naloxone (Suboxone 8-2 Mg Sl Tab*) 0.5 tab.sl PO DAILY [facility] Last Admin: 07/04/18 08:17 Dose: 0.5 tab.sl Citalopram Hydrobromide (Celexa Tab*) 40 mg PO DAILY [facility] Last Admin: 07/04/18 08:19 Dose: 40 mg Clonazepam (Klonopin Tab(*)) 1 mg PO BEDTIME [facility] Last Admin: 07/03/18 21:36 Dose: 1 mg Device (Nicotine Mouth Piece*) 1 each INH .USE WITH NICOTROL PRN PRN Reason: CRAVING Last Admin: 07/03/18 05:54 Dose: 1 each Gabapentin (Neurontin Cap(*)) 800 mg PO TID [facility] Last Admin: 07/04/18 14:29 Dose: 800 mg Heparin Sodium (Porcine) (Heparin Vial(*)) 5,000 units SUBCUT Q8HR [facility] Last Admin: 07/04/18 14:33 Dose: 5,000 units Sodium Chloride (Ns 0.9% 1000 Ml*) 1,000 mls @ 125 mls/hr IV PER RATE [facility] Last Admin: 07/04/18 08:23 Dose: 125 mls/hr Vancomycin HCl 1,000 mg/ (Sodium Chloride) 250 mls @ 166.667 mls/hr IVPB Q8H [facility] Last Admin: 07/04/18 14:36 Dose: 166.667 mls/hr Cefepime HCl (Maxipime 2 Gm In Dextrose Duplex (*)) 2 gm in 50 mls @ 100 mls/ hr IV Q24HR@0730 [facility] Ketorolac Tromethamine (Toradol Inj*) 30 mg IV PUSH Q6H PRN PRN Reason: PAIN Last Admin: 07/04/18 16:30 Dose: 30 mg Lidocaine (Xylocaine 2% Viscous*) 15 ml PO Q6H PRN PRN Reason: oral pain Last Admin: 07/04/18 14:36 Dose: 15 ml Melatonin (Melatonin) 3 mg PO BEDTIME PRN; Protocol PRN Reason: Sleep Nicotine (Nicotine Inhaler*) 10 mg INH Q2H PRN PRN Reason: CRAVING Last Admin: 07/03/18 05:55 Dose: 10 mg Nicotine (Nicotine Patch 21 Mg/24 Hr*) 1 patch TRANSDERM DAILY [facility] Last Admin: 07/04/18 11:48 Dose: 1 patch Nystatin (Nystatin Suspension*) 200,000 units PO QID [facility] Last Admin: 07/04/18 14:31 Dose: 200,000 units Omeprazole (Prilosec Cap*) 20 mg PO DAILY@0600 [facility] Last Admin: 07/04/18 06:06 Dose: 20 mg Ondansetron HCl (Zofran Odt Tab*) 4 mg PO Q6H PRN PRN Reason: n/v Pharmacy Consult (Vancomycin Per Pharmacy*) 1 note FOLLOW UP .VANC PER PHARMACY [facility] Pharmacy Profile Note (Nicotine Patch Removal Note*) 1 note FOLLOW UP 0600 [facility] Pharmacy Profile Note (Vancomycin Trough Check) 1 note FOLLOW UP ONCE ONE Stop: 07/06/18 12:31 Vital Signs - 8 hr 07/04/18 07/04/18 07/04/18 10:54 11:07 14:00 Temperature 98.1 F 97.8 F Pulse Rate 62 61 Respiratory 18 16 16 Rate Blood Pressure 102/52 138/83 (mmHg) O2 Sat by Pulse 96 Oximetry 07/04/18 14:29 Temperature Pulse Rate Respiratory 18 Rate Blood Pressure (mmHg) O2 Sat by Pulse Oximetry Oxygen Devices in Use Now: None Appearance: disheveled, NAD Eyes: No Scleral Icterus, PERRLA Ears/Nose/Mouth/Throat: Mucous Membranes Moist, - - mouth floor discoloration right of tongue, ulceration on right of mouth involving both lips Respiratory: Symmetrical Chest Expansion and Respiratory Effort, - - trace rhonchi Cardiovascular: RRR Abdominal: NL Sounds; No Tenderness; No Distention, No Hepatosplenomegaly Lymphatic: No Cervical Adenopathy Extremities: - - ulceration/necrosis of right 1st and 5th and left 1st and 3rd finger pads Neurological: Alert and Oriented x 3 Result Diagrams: 07/04/18 07:57 07/04/18 07:57 Microbiology and Other Data: Microbiology 07/03/18 06:00 Urine Culture - Final Urine No Growth (<1,000 CFU/mL) 07/03/18 03:07 Aerobic Blood Culture - Preliminary Blood Venous No Growth Day 1 Anaerobic Blood Culture - Preliminary No Growth Day 1 07/03/18 03:07 Aerobic Blood Culture - Preliminary Blood Venous No Growth Day 1 Anaerobic Blood Culture - Preliminary No Growth Day 1 Assess/Plan/Problems-Billing Assessment: 38 [place] F h/o polysubstance abuse [place] [facility] [place], rhabdomyolysis found with b/l upper extremity distal finger necrosis - Patient Problems (1) FAVIOLA (acute kidney injury) Comment: improved with IVF suspect prerenal with polysubstance abuse and decrease PO over weekend c/w IVF (2) Rhabdomyolysis Comment: improved with IVF suspect methamphetamines (3) Necrosis Comment: favor methamphetamine vasculitis Injection of suboxone can have similar effect although pt denies this vigorously methamphetamines also as etiology of FAVIOLA, rhabo and potentially mild pHTN seen on TTE stop abx Pt relates that necrosis has only been present x 1-2 days and is from digging at her tooth that was just extracted (4) Polysubstance abuse Comment: c/w suboxone (5) DVT prophylaxis Comment: HSQ
[2018-07-04] MEDS: clonazePAM TAB(*) 1 MG PO SCH (21:16)
--- NOTE | 2018-07-04 22:21 | CONS ---
CONSULTATION REPORT: DATE OF CONSULT: 07/04/18 HISTORY OF PRESENT ILLNESS: Dr. Gunter called me to evaluate the patient for her mouth. He was concerned for neoplasm. She has been admitted with what sounds like some type of infection. She had thrush in her mouth and possibly a viral eruption as well. PHYSICAL EXAMINATION: On physical examination, her floor of mouth is soft. There is an eschar along the right floor of the mouth along the submandibular duct anteriorly and there is some swelling in the sublingual salivary tissue mucosa in this area. She also has some areas of eschar consistent with viral eruption on the tip and lateral side of her tongue. She also has some erythema at the medial commissure and to the skin of her face. ASSESSMENT: The patient has some type of infectious process and not neoplasm involving the floor of the mouth. I suspect what is going on her tongue, floor of mouth, and face were all the same. Based on the way the eschars are, it seems like it could be viral eruption, but a bacterial infection can also be the case. It does not appear to be fungal because oral thrush does not tend to get that deep into the tissue. [id number]/[facility] #: [id number] MTDD
[2018-07-05] MEDS: Ketorolac INJ* 30 MG/ML 1 ML VIAL IV PUSH PRN ×2 (02:31→08:28)
[2018-07-05] MEDS ORDERED: Nicotine Patch Removal NOTE FOLLOW UP SCH (06:00)
[2018-07-05] MEDS: Omeprazole CAP* 20 MG PO SCH (06:18)
[2018-07-05] MEDS: Heparin VIAL(*) 5000 UNITS/ML VIAL (FIVE THOUSAND) SUBCUT SCH (06:18)
[2018-07-05] MEDS: Acetaminophen TAB* 325 MG PO PRN (06:18)
[2018-07-05] MEDS ORDERED: Cefepime 2 GM in Dextrose(*) 2 GM/50 ML BAG IV SCH (07:30)
[2018-07-05] MEDS: Citalopram TAB* 40 MG PO SCH (08:26)
[2018-07-05] MEDS: Gabapentin CAP(*) 400 MG PO SCH (08:26)
[2018-07-05] MEDS: Nystatin SUSPENSION* 100000 UNITS/ML 5 ML UDC PO SCH (08:27)
[2018-07-05] MEDS: Buprenorphine/Naloxone 8-2 MG SL TAB* 1 TAB PO SCH (08:27)
[2018-07-05] MEDS: Nicotine PATCH 21 MG/24 HR* PATCH TRANSDERM SCH (08:28)
[2018-07-05 11:40] VITALS: BP 127/76
--- NOTE | 2018-07-06 04:52 | DS ---
DISCHARGE SUMMARY: DATE OF ADMISSION: 07/03/18 DATE OF DISCHARGE: 07/05/18 PRIMARY CARE: The patient receives her primary care at the [facility]. PRIMARY DIAGNOSES: 1. Rhabdomyolysis. 2. Acute kidney failure. SECONDARY DIAGNOSES: Include: 1. Polysubstance abuse. 2. Digital necrosis. 3. Thrush. 4. Lip and facial superficial infection. MEDICATIONS AT DISCHARGE: 1. Suboxone 4/1 one tab daily. 2. Ranitidine 150 mg daily. 3. Klonopin 1 mg at bedtime. 4. Gabapentin 800 mg 3 times a day. 5. Lexapro 20 mg daily. 6. Nystatin suspension 100,000 units 4 times a day. 7. Bactroban 2% apply topically 3 times a day. PERTINENT IMAGING PERFORMED DURING HOSPITAL STAY: Transthoracic echocardiogram : Impression: Estimated LVEF 60% to 65%. There is mild biatrial enlargement. Right ventricle global systolic function is normal. There is trace AR, trace to mild MR, mild TR. There is evidence of mild pulmonary hypertension estimated at 38 mmHg. PERTINENT LABORATORY DATA: White blood cell count on presentation is 18.8 decreased to 5.8. ESR is 40 and CRP was 271 with corresponding procalcitonins of 0.2 and 0.1 on days 1 and 2 respectively. Total creatinine kinase 1751 decreased to 424 on the day of discharge. Serum creatinine on admission 1.8 decreased to 0.79 on discharge. Serology was negative for hepatitis B, surface antigen, and core hepatitis C antibody, and HIV-1 and 2. Urine was positive for opioids, amphetamines, and cannabinoids. HISTORY OF PRESENT ILLNESS AND HOSPITAL COURSE: This is a 38-year-old female with past medical history as outlined in the history of present illness on the day of admission including polysubstance abuse. She [facility], reported with sobriety for many years, however relapsed with what she told as cocaine over the weekend several days prior to presentation, however was later told that it was methamphetamines. Additionally last week, she had a tooth removed with the dentist, what she noted as fragments left in her right lower jaw, which she is picking it, which she attributed new ulcerations that are more approximately eschars, bilateral hands picking at it. The patient was quite tangential on presentation on the following day, however on the third day of contact her thought process had become much more goal directed. 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 She was admitted to the hospital under the diagnosis of rhabdomyolysis given vigorous fluid resuscitation. While in the hospital, she was seen in consultation by ENT who evaluated floor of her mouth as well as skin lesion on the right side of her lip as well as extending into the right side of her face. ENT have low suspension for neoplasm, felt more likely there was an infectious process at the base of her tongue and floor of her mouth extending into her face. The patient's thrush was treated first with fluconazole and then changed to nystatin with fast improvement. The patient was seen in consultation by Dermatology who recommended a superficial skin culture to be followed up in her office in [address] Moore as well as Bactroban 3 times a day. The patient was started on Bactroban and aforementioned skin culture for bacteria and fungus was obtained. The patient was discharged with followup at the [facility] on the day of discharge as well as Dr. Moore in 1 week. She was heavily advised to stop picking at her tooth if this was the etiology of her eschars. However, additionally on the differential for the lesions on her hands include levamisole and cocaine, although we will note that her toxicology was negative for cocaine as well as injecting Suboxone, which has been known to cause as well as methamphetamine vasculitis similar to cause bilateral upper extremity digital necrosis. I discussed these with patient, she denied any IV administration of drugs as well as Suboxone vigorously. At followup, please: 1. Please evaluate for continued resolution of healing skin lesion on her right upper and lower lip as well as extending from that area to corner of her mouth approximately 1 inch over the skin on the face. 2. Evaluate for continued healing eschars on her left first and third and right first and fifth digits on the finger pads. 3. Continuous program counselor on drug abstinence. 4. Please follow up superficial skin culture for bacteria and fungus. 5. No other specific labs or values that need followup. Reasons to return to the hospital include, but not limited to, recurrent or worsening symptoms, worsening rash on the face, fevers, chills, night sweats, chest pain, shortness of breath, nausea, vomiting, lightheadedness, inability to obtain or tolerate medications were discussed with the patient, and she acknowledged understanding. TIME SPENT: Greater than 1 hour was spent on the discharge of this patient, greater than half was spent [id number] with the patient. [id number]/[facility] #: [id number] MTDD
[2018-07-06] MEDS ORDERED: Vancomycin Trough Check NOTE FOLLOW UP ONE (12:30)
== END 2018-07-05 12:15 | disposition home or self-care (01) | DRG 460 ==
LOC: ED 23:15 → MED 07-03 04:12
PROVIDERS: ADMIT Hospitalist; ATTEND Internal Medicine
DX: N17.9 Acute kidney failure, unspecified (principal); M62.82 Rhabdomyolysis; I96 Gangrene, not elsewhere classified; B37.0 Candidal stomatitis; L08.9 Local infection of the skin and subcutaneous tissue, unspecified; I08.3 Combined rheumatic disorders of mitral, aortic and tricuspid valves; I27.20 Pulmonary hypertension, unspecified; F19.10 Other psychoactive substance abuse, uncomplicated; F17.210 Nicotine dependence, cigarettes, uncomplicated; E66.9 Obesity, unspecified; Z68.32 Body mass index [BMI] 32.0-32.9, adult; I45.10 Unspecified right bundle-branch block; F32.9 Major depressive disorder, single episode, unspecified; F41.9 Anxiety disorder, unspecified; Z82.49 Family history of ischemic heart disease and other diseases of the circulatory system; Z88.8 Allergy status to other drugs, medicaments and biological substances
CPT/HCPCS: 36415; 71045; 76775; 80048; 80053; 80202; 80307; 81003; 81015; 82550; 83605; 83690; 84145; 84702; 85025; 85652; 86140; 86703; 86704; 86705; 86803; 87040; 87070; 87077; 87086; 87102; 87186; 87205; 87340; 87640; 87641; 90686; 93005; 93306; 99284; A9270-GY; J0692; J1644; J1885; J3370

== ENCOUNTER 2020-12-11 11:54 | Inpatient (IN) ==
[2020-12-11 13:18] LABS: Urine Benzodiazepine Screen None Detected (None Detect); Urine Cannabinoids Screen None Detected (None Detect); Urine Opiates Screen None Detected (None Detect)
[2020-12-11] MEDS ORDERED: Lactated Ringers 1000 ml BAG 1,000 ML IV ONE (13:47)
[2020-12-11 14:01] LABS: ABS Basophils 0.1 10^3/ul (0-0.2); ABS Lymphocytes 2.2 10^3/ul (1.0-4.8); ABS Monocytes 0.4 10^3/ul (0-0.8); ABS Neutrophils 6.1 10^3/ul (1.5-7.7); ABS Nucleated RBC 0.1 10^3/ul; Eosinophil % 0.4 %; Hematocrit 35 % (35-47); Hemoglobin 11.6 g/dL (12.0-16.0); Lymphocyte % 24.5 %; Mean Corpuscular HGB Conc 33 g/dL (31-36); Mean Corpuscular Hemoglobin 27 pg (27-31); Mean Corpuscular Volume 81 fL (80-97); Mean Platelet Volume 10.1 fL (7.4-10.4); Nucleated Red Blood Cells % 1.2; Platelet Count 312 10^3/uL (150-450); Red Blood Count 4.32 10^6 /uL (3.70-4.87); Red Cell Distribution Width 14 % (10-15); White Blood Count 8.8 10^3/uL (3.5-10.8)
[2020-12-11] MEDS: Lactated Ringers 1000 ml BAG 1,000 ML IV SCH ×2 (15:04→19:33)
[2020-12-11 15:22] LABS: Urine Appearance Cloudy; Urine Bilirubin Negative (Negative); Urine Blood 1+ (Negative); Urine Color Amber; Urine Glucose Negative (Negative); Urine Ketones Negative (Negative); Urine Nitrite Negative (Negative); Urine Protein 2+(100 mg/dL) (Negative); Urine Urobilinogen Negative (Negative)
[2020-12-11 15:37] LABS: Urine Bacteria Absent (Absent); Urine Red Blood Cell 3+(>10/hpf) (Absent); Urine Squamous Epithelial Cell Present (Absent); Urine White Blood Cell Trace(0-5/hpf) (Absent)
[2020-12-11 15:38] LABS: BUN/Creatinine Ratio 12.5 (8-20); Calcium 8.6 mg/dL (8.6-10.3); EGFR African American 86.6 (>60); EGFR Non-African American 71.5 (>60); Total Bilirubin 0.4 mg/dL (0.2-1.0)
[2020-12-11] MEDS: Nicotine PATCH 14 MG/24 HR PATCH TRANSDERM SCH (19:28)
[2020-12-11] MEDS ORDERED: Promethazine INJ(RESTRICTED) 25 MG/ML 1 ml VIAL IV ONE (22:01)
[2020-12-12] MEDS: Lactated Ringers 1000 ml BAG 1,000 ML IV SCH (01:10)
[2020-12-12] MEDS: Betamethasone 6 mg/ml 5 ml VIAL IM SCH (09:27)
[2020-12-12] MEDS: DULoxetine DR 60 mg CAP PO SCH (12:11)
[2020-12-12] MEDS: CMCS:Omeprazole 20 mg CAP (NF) PO SCH (12:11)
[2020-12-12] MEDS: Nicotine PATCH 14 MG/24 HR PATCH TRANSDERM SCH (19:25)
[2020-12-13] MEDS: Betamethasone 6 mg/ml 5 ml VIAL IM SCH (08:30)
[2020-12-13] MEDS: Lactated Ringers 1000 ml BAG 1,000 ML IV SCH (09:34)
[2020-12-13] MEDS: Nicotine PATCH 14 MG/24 HR PATCH TRANSDERM SCH ×2 (09:40→19:43)
[2020-12-13] MEDS: CMCS:Omeprazole 20 mg CAP (NF) PO SCH (09:40)
[2020-12-13] MEDS: DULoxetine DR 60 mg CAP PO SCH (09:40)
[2020-12-13] MEDS ORDERED: Sodium Citrate/Citric Acid LIQ 15 ML UDC PO ONE (09:49)
[2020-12-13] MEDS ORDERED: Buffered Lidocaine 1% SYRIN 1 ml INTRADERM ONE (09:49)
[2020-12-13] MEDS ORDERED: Acetaminophen IV 1 GM/100ML 1,000 MG/100 ML VIAL IVPB ONE (09:50)
[2020-12-13] MEDS ORDERED: Naloxone 0.4 mg VIAL 0.4 mg/ml 1 ml VIAL IV PRN (09:50)
[2020-12-13] MEDS ORDERED: fentaNYL 100 mcg/2 ml 50 MCG/ML VIAL IV PRN (09:50)
[2020-12-13] MEDS ORDERED: DiMENhydriNATE IV 50 mg/ml 1 ml VIAL IV PUSH PRN (09:50)
[2020-12-13] MEDS ORDERED: Lactated Ringers 1000 ml BAG 1,000 ML IV SCH ×2 (10:00→13:00)
[2020-12-13] MEDS ORDERED: Sodium Citrate/Citric Acid LIQ 15 ML UDC ONE (10:02)
[2020-12-13 10:03] LABS: Hematocrit 31 % (35-47); Hemoglobin 10.2 g/dL (12.0-16.0); Mean Corpuscular HGB Conc 33 g/dL (31-36); Mean Corpuscular Hemoglobin 27 pg (27-31); Mean Corpuscular Volume 80 fL (80-97); Mean Platelet Volume 9.5 fL (7.4-10.4); Platelet Count 278 10^3/uL (150-450); Red Blood Count 3.84 10^6 /uL (3.70-4.87); Red Cell Distribution Width 15 % (10-15); White Blood Count 13.7 10^3/uL (3.5-10.8)
[2020-12-13] MEDS ORDERED: Bupivacaine 0.5% SDV PF 30ML VIAL ONE (10:03)
[2020-12-13] MEDS ORDERED: ceFOXitin 2 GM IVPREMIX 2 GM/50 ML BAG ONE (10:05)
[2020-12-13 10:06] LABS: ABS Basophils 0.1 10^3/ul (0-0.2); ABS Lymphocytes 2.4 10^3/ul (1.0-4.8); ABS Monocytes 0.7 10^3/ul (0-0.8); ABS Neutrophils 10.5 10^3/ul (1.5-7.7); ABS Nucleated RBC 0.4 10^3/ul; Lymphocyte % 17.6 %; Nucleated Red Blood Cells % 3.2
[2020-12-13] MEDS ORDERED: ceFOXitin 2 GM IVPREMIX 2 GM/50 ML BAG IVPB ONE (10:06)
[2020-12-13 10:21] LABS: Albumin 3.2 g/dL (3.2-5.2); Albumin/Globulin Ratio 1.1 (1-3); BUN/Creatinine Ratio 15.8 (8-20); Calcium 8.6 mg/dL (8.6-10.3); EGFR African American 102.5 (>60); EGFR Non-African American 84.7 (>60); Globulin 2.8 g/dL (2-4); Potassium 3.8 mmol/L (3.5-5.0); Total Bilirubin 0.4 mg/dL (0.2-1.0)
[2020-12-13] MEDS ORDERED: Ondansetron 4 mg VIAL 2 MG/ML 2 ml VIAL ONE (10:21)
[2020-12-13] MEDS ORDERED: Oxytocin 10 UNITS/ML 1 ML VIAL ONE (10:21)
[2020-12-13] MEDS ORDERED: Dexamethasone IV 4 MG/ML VIAL 1 ml VIAL ONE (10:21)
[2020-12-13] MEDS ORDERED: Phenylephrine 40 mcg/mL 10mL (400mcg) SYRINGE ONE (11:04)
[2020-12-13] MEDS ORDERED: EPHEDrine (Pressors) 50 MG/ML VIAL ONE (11:35)
[2020-12-13] MEDS ORDERED: Lactated Ringers 500 ml BAG 500 ML IV PRN ×2 (11:39→14:00)
[2020-12-13] MEDS ORDERED: EPHEDrine (Pressors) 50 MG/ML VIAL IV PUSH PRN (11:39)
[2020-12-13] MEDS ORDERED: Ondansetron 4 mg VIAL 2 MG/ML 2 ml VIAL IV PRN (11:39)
[2020-12-13] MEDS ORDERED: ROPIVACAINE 0.2% EPIDURAL SCH (12:00)
[2020-12-13] MEDS ORDERED: Witch Hazel PAD JAR TOPICAL PRN (12:05)
[2020-12-13] MEDS ORDERED: Glycerin ADULT 2.4 gm SUPP PR PRN (12:05)
[2020-12-13] MEDS ORDERED: Dibucaine 1% OINT 28.35 GM TUBE PR PRN (12:05)
[2020-12-13] MEDS ORDERED: Oxytocin in LR 20 UNITS/1,000 ML BAG IVPB SCH (13:00)
[2020-12-14 06:50] LABS: Hematocrit 27 % (35-47); Hemoglobin 8.8 g/dL (12.0-16.0); Mean Corpuscular HGB Conc 33 g/dL (31-36); Mean Corpuscular Hemoglobin 27 pg (27-31); Mean Corpuscular Volume 82 fL (80-97); Mean Platelet Volume 9.5 fL (7.4-10.4); Platelet Count 197 10^3/uL (150-450); Red Blood Count 3.32 10^6 /uL (3.70-4.87); Red Cell Distribution Width 15 % (10-15); White Blood Count 16.6 10^3/uL (3.5-10.8)
[2020-12-14 07:10] LABS: ABS Basophils 0.1 10^3/ul (0-0.2); ABS Lymphocytes 2.3 10^3/ul (1.0-4.8); ABS Monocytes 1.1 10^3/ul (0-0.8); ABS Neutrophils 13.1 10^3/ul (1.5-7.7); ABS Nucleated RBC 0.5 10^3/ul; Lymphocyte % 13.8 %; Nucleated Red Blood Cells % 2.9
[2020-12-14] MEDS: Nicotine PATCH 14 MG/24 HR PATCH TRANSDERM SCH (07:32)
[2020-12-14] MEDS: CMCS:Omeprazole 20 mg CAP (NF) PO SCH (07:32)
[2020-12-14] MEDS: DULoxetine DR 60 mg CAP PO SCH (07:32)
[2020-12-15] MEDS: DULoxetine DR 60 mg CAP PO SCH (08:55)
[2020-12-15] MEDS: CMCS:Omeprazole 20 mg CAP (NF) PO SCH (09:46)
[2020-12-15] MEDS: Nicotine PATCH 14 MG/24 HR PATCH TRANSDERM SCH (09:46)
[2020-12-15] MEDS ORDERED: Nicotine GUM 2MG FRUIT FLAVOR PO PRN (11:36)
[2020-12-16 08:13] VITALS: BP 139/78
[2020-12-16] MEDS: Nicotine PATCH 14 MG/24 HR PATCH TRANSDERM SCH (08:47)
[2020-12-16] MEDS: CMCS:Omeprazole 20 mg CAP (NF) PO SCH (08:49)
[2020-12-16] MEDS: DULoxetine DR 60 mg CAP PO SCH (08:49)
[2020-12-16] MEDS ORDERED: Scopolamine PATCH Remove NOTE PATCH OFF ONE (11:40)
== END 2020-12-16 18:20 | disposition home or self-care (01) | DRG 540 ==
LOC: MCHOBOUT 11:54 → MCHOB 12-12 08:36
PROVIDERS: ADMIT Midwife; ATTEND Obstetrics & Gynecology

== ENCOUNTER 2023-03-24 11:36 | Inpatient (IN) ==
[2023-03-24] MEDS ORDERED: Oxytocin 10 UNITS/ML 1 ML VIAL IM ONE (11:51)
[2023-03-24] MEDS ORDERED: Dibucaine 1% OINT 28.35 GM TUBE PR PRN (11:51)
[2023-03-24] MEDS ORDERED: Witch Hazel PAD JAR TOPICAL PRN (11:51)
[2023-03-24] MEDS ORDERED: Glycerin ADULT 2.4 gm SUPP PR PRN (11:51)
[2023-03-24] MEDS ORDERED: Lactated Ringers 1000 ml BAG 1,000 ML IV SCH (12:00)
[2023-03-24] MEDS: Nicotine PATCH 21 MG/24 HR PATCH TRANSDERM SCH (18:46)
[2023-03-25 07:11] LABS: ABS Basophils 0.1 10^3/uL (0.0-0.1); ABS Eosinophils 0.1 10^3/uL (0.0-0.5); ABS Monocytes 0.6 10^3/uL (0.0-0.9); ABS Neutrophils 5.1 10^3/uL (1.5-7.6); ABS Nucleated RBC 0.02 10^3/ul; Eosinophil % 0.7 %; Hemoglobin 11.4 g/dL (11.5-14.3); Lymphocyte % 34.3 %; Mean Corpuscular Hemoglobin 29.3 pg (27-33); Mean Corpuscular Hgb Conc 34.6 g/dL (31-36); Mean Corpuscular Volume 84.9 fL (80-97); Mean Platelet Volume 8.9 fL (7.5-11.2); Nucleated Red Blood Cells % 0.2 /100 WBC (0.0-0.4); Platelet Count 319 10^3/uL (150-450); Red Blood Count 3.89 10^6/uL (3.63-4.92); Red Cell Distribution Width 13.1 % (12-17); White Blood Count 8.8 10^3/uL (3.8-11.8)
[2023-03-25] MEDS: Nicotine PATCH 21 MG/24 HR PATCH TRANSDERM SCH (10:43)
[2023-03-26] MEDS: Nicotine PATCH 21 MG/24 HR PATCH TRANSDERM SCH (07:36)
[2023-03-26] MEDS ORDERED: medroxyPROGESTERone ACETATE 150 MG/ML VIAL IM ONE (08:23)
[2023-03-26] MEDS ORDERED: Tetan/Diph/Pertus SYR(Tdap) 0.5 ML SYR(BOOSTRIX) use SYR contains LATEX IM ONE (08:24)
[2023-03-26 08:54] VITALS: BP 133/84
== END 2023-03-26 15:31 | disposition home or self-care (01) | DRG 560 ==
LOC: MCHOBOUT 11:36 → MCHOB 11:39
PROVIDERS: ADMIT Obstetrics & Gynecology; ATTEND Obstetrics & Gynecology

== ENCOUNTER 2024-09-09 15:08 | Inpatient (IN) ==
[2024-09-09] MEDS ORDERED: Glycerin ADULT 2.4 gm SUPP PR PRN (15:47)
[2024-09-09] MEDS ORDERED: Witch Hazel PAD JAR TOPICAL PRN (15:47)
[2024-09-09] MEDS ORDERED: Zosyn per Pharmacy NOTE FOLLOW UP SCH (17:00)
[2024-09-09] MEDS: Vancomycin 1,000 MG in NS 0.9% 250 ml 250 ML IVPB ONE (17:00)
[2024-09-09] MEDS: Piperacillin/Tazobac 3.375 BAG 3.375 GM/100 ML BAG IV ONE (17:04)
[2024-09-09] MEDS: Vancomycin 1,000 MG BAG/ADDV ONE (18:01)
[2024-09-09] MEDS: D5LR 1000 ml BAG 1,000 ML IV SCH (18:34)
[2024-09-09] MEDS: Lactated Ringers 1000 ml BAG 1,000 ML IV ONE (19:14)
[2024-09-09 20:48] LABS: Potassium Redraw 3.5 mmol/L (3.5-5.0)
[2024-09-09] MEDS: Lactated Ringers 1000 ml BAG 1,000 ML IV SCH (20:52)
[2024-09-09 21:09] LABS: ABS Eosinophils 0.1 10^3/uL (0.0-0.5); ABS Lymphocytes 2.2 10^3/uL (1.0-4.8); ABS Monocytes 0.8 10^3/uL (0.0-0.9); ABS Neutrophils 23.3 10^3/uL (1.5-7.6); ABS Nucleated RBC 0.64 10^3/ul; Eosinophil % 0.4 %; Hematocrit 34.3 % (35-45); Hemoglobin 11.4 g/dL (11.5-14.3); Lymphocyte % 8.2 %; Mean Corpuscular Hemoglobin 27.8 pg (27-33); Mean Corpuscular Hgb Conc 33.2 g/dL (31-36); Mean Corpuscular Volume 83.5 fL (80-97); Mean Platelet Volume 7.6 fL (7.5-11.2); Nucleated Red Blood Cells % 2.4 %/100WBC (0.0-0.8); Platelet Count 66 10^3/uL (150-450); RBC Morphology Normal (Normal); Red Blood Count 4.11 10^6/uL (3.63-4.92); Red Cell Distribution Width 13.8 % (12-17); White Blood Count 26.5 10^3/uL (3.8-11.8)
[2024-09-09] MEDS: Dextrose 50% Syringe 50 ml 25 GM/50 ML SYRINGE IV PUSH PRN (23:21)
[2024-09-09] MEDS: D10W 1000 ml BAG 1,000 ML IV SCH ×2 (23:37→23:44)
[2024-09-09] MEDS: ZOSYN 3.375 GM Q8H per EXTENDED INFUSION IV SCH (23:37)
[2024-09-10 00:42] LABS: Direct Bilirubin 1.4 mg/dL (0.03-0.18); Potassium 3.9 mmol/L (3.5-5.0)
[2024-09-10 00:43] LABS: Albumin 2.5 g/dL (3.2-5.2); Albumin/Globulin Ratio 1.2 (1-3); Calcium 7.5 mg/dL (8.6-10.3); Creatinine, Serum 3.29 mg/dL (0.51-0.95); Globulin 2.1 g/dL (2-4); Indirect Bilirubin 1.5 mg/dL (0.3-1.0); Total Bilirubin 2.9 mg/dL (0.2-1.0); Total Protein 4.6 g/dL (6.4-8.9); eGFR CKD-EPI 17.2 (>60)
[2024-09-10 01:44] LABS: INR 1.54 (0.85-1.14)
[2024-09-10] MEDS: Magnesium Sulfate 2 gm BAG 2 GM/50 ML BAG IVPB ONE (02:07)
[2024-09-10] MEDS: Morphine 2 MG/ML SYRINGE IV PRN (02:24)
[2024-09-10] MEDS: LORazepam 2 mg VIAL 1 ml IV PUSH ONE (02:35)
[2024-09-10] MEDS ORDERED: Lorazepam PYXIS KEY PRN (03:57)
[2024-09-10] MEDS: HYDROmorphone 1 MG/1 ML SYRINGE IV SLOW PU PRN (04:05)
[2024-09-10] MEDS: HYDROmorphone 1 MG/1 ML SYRINGE ONE (04:18)
[2024-09-10] MEDS: LORazepam 2 mg VIAL 1 ml ONE (04:19)
[2024-09-10] MEDS: Nicotine PATCH 14 MG/24 HR PATCH TRANSDERM SCH (04:20)
[2024-09-10] MEDS: Morphine 2 MG/ML SYRINGE ONE (04:21)
[2024-09-10] MEDS: D10W 1000 ml BAG 1,000 ML IV SCH (04:40)
[2024-09-10] MEDS ORDERED: Vancomycin 1,000 MG in NS 0.9% 250 ml 250 ML IVPB SCH (06:00)
[2024-09-10] MEDS ORDERED: Sulfur Hexaflouride MICROSPHR 25 MG VIAL IV PRN (06:11)
[2024-09-10 06:37] LABS: Hematocrit 33.3 % (35-45); Hemoglobin 11.1 g/dL (11.5-14.3); Mean Corpuscular Hemoglobin 27.7 pg (27-33); Mean Corpuscular Hgb Conc 33.3 g/dL (31-36); Mean Corpuscular Volume 83.3 fL (80-97); Mean Platelet Volume 8.1 fL (7.5-11.2); Platelet Count 74 10^3/uL (150-450); Red Cell Distribution Width 13.9 % (12-17); White Blood Count 33.9 10^3/uL (3.8-11.8)
[2024-09-10 07:46] LABS: ABS Basophils 0.2 10^3/uL (0.0-0.1); ABS Eosinophils 0.1 10^3/uL (0.0-0.5); ABS Lymphocytes 2.9 10^3/uL (1.0-4.8); ABS Monocytes 1.1 10^3/uL (0.0-0.9); ABS Neutrophils 29.6 10^3/uL (1.5-7.6); ABS Nucleated RBC 0.21 10^3/ul; Eosinophil % 0.3 %; Lymphocyte % 8.6 %; Nucleated Red Blood Cells % 0.6 %/100WBC (0.0-0.8); RBC Morphology Normal (Normal)
[2024-09-10 08:11] LABS: ALT 736 U/L (7-52); Albumin 2.7 g/dL (3.2-5.2); Albumin/Globulin Ratio 1.2 (1-3); Alkaline Phosphatase 156 U/L (35-149); Anion Gap 7 mmol/L (2-16); Blood Urea Nitrogen 37 mg/dL (6-24); CO2 Carbon Dioxide 26 mmol/L (22-32); Calcium 7.6 mg/dL (8.6-10.3); Chloride 93 mmol/L (101-111); Creatinine, Serum 3.65 mg/dL (0.51-0.95); Globulin 2.3 g/dL (2-4); Glucose 76 mg/dL (70-100); Magnesium 2.1 mg/dL (1.9-2.7); Sodium 126 mmol/L (135-145); Total Bilirubin 3.4 mg/dL (0.2-1.0); eGFR CKD-EPI 15.2 (>60)
[2024-09-10] MEDS ORDERED: DEXTROSE 50% IV SCH (11:30)
[2024-09-10] MEDS ORDERED: WATER IV SCH (11:30)
[2024-09-10 11:40] LABS: PCO2 Arterial 31 mmHg (35-45); PO2 Arterial 74 mmHg (80-100)
[2024-09-10] MEDS ORDERED: Midazolam 10 mg/10 ml VIAL 1 mg/ml 10 ml VIAL (10 mg) ONE (12:30)
[2024-09-10] MEDS ORDERED: Etomidate 40 mg/20 ml (2 MG/ML) 20 ml VIAL (40 mg) ONE (12:30)
[2024-09-10] MEDS ORDERED: Rocuronium 50 mg VIAL 10 mg/ml 5 ml VIAL (50 mg) ONE (12:30)
[2024-09-10] MEDS ORDERED: fentaNYL 250 mcg/5 ml 50 MCG/ML 5 ml VIAL (250 MCG) ONE (12:30)
[2024-09-10] MEDS: Norepinephrine 4 MG/250mL D5W 4,000 MCG/250 ML BAG IV SCH (12:50)
[2024-09-10] MEDS: Propofol 10 mg/ml 100 ML BTL 1,000 MG/100 ML BTL IV SCH (13:00)
[2024-09-10] MEDS: WATER IV SCH (13:10)
[2024-09-10] MEDS: DEXTROSE 40% IV SCH (13:10)
[2024-09-10 15:00] LABS: Resp Rate 20
[2024-09-10 15:01] LABS: PCO2 Arterial 45 mmHg (35-45); PO2 Arterial 89 mmHg (80-100)
[2024-09-10 15:41] LABS: Hematocrit 34.7 % (35-45); Hemoglobin 11.9 g/dL (11.5-14.3); Mean Corpuscular Hemoglobin 28.1 pg (27-33); Mean Corpuscular Hgb Conc 34.3 g/dL (31-36); Mean Corpuscular Volume 81.8 fL (80-97); Red Blood Count 4.24 10^6/uL (3.63-4.92); Red Cell Distribution Width 14.1 % (12-17); White Blood Count 41.9 10^3/uL (3.8-11.8)
[2024-09-10 15:42] LABS: Calcium 7.2 mg/dL (8.6-10.3); Creatinine, Serum 4.23 mg/dL (0.51-0.95); Potassium 3.8 mmol/L (3.5-5.0); eGFR CKD-EPI 12.7 (>60)
[2024-09-10 15:59] LABS: Albumin 2.3 g/dL (3.2-5.2); Albumin/Globulin Ratio 1.2 (1-3); Direct Bilirubin 2.3 mg/dL (0.03-0.18); Indirect Bilirubin 1.4 mg/dL (0.3-1.0); Magnesium 1.9 mg/dL (1.9-2.7); Phosphorus 5.6 mg/dL (2.5-5.0); Total Bilirubin 3.7 mg/dL (0.2-1.0); Total Protein 4.3 g/dL (6.4-8.9)
[2024-09-10] MEDS: Midazolam 10 mg/10 ml VIAL 1 mg/ml 10 ml VIAL (10 mg) ONE (16:07)
[2024-09-10] MEDS: Rocuronium 50 mg VIAL 10 mg/ml 5 ml VIAL (50 mg) ONE ×2 (16:07)
[2024-09-10] MEDS: EPINEPHrine SYR 0.1MG/ML 10 ml SYRINGE IV ONE (16:07)
[2024-09-10] MEDS: Phenylephrine 40 mcg/mL 10mL (400mcg) SYRINGE ONE (16:08)
[2024-09-10] MEDS: Norepinephrine 4 MG/250mL D5W 4,000 MCG/250 ML BAG IV ONE (16:08)
[2024-09-10] MEDS: Propofol 10 mg/ml 100 ML BTL 1,000 MG/100 ML BTL ONE (16:08)
[2024-09-10 16:17] LABS: INR 1.52 (0.85-1.14)
[2024-09-10] MEDS: Chlorhexidine MOUTHWASH 0.12% 15 ML UDC TOPICAL SCH (16:32)
[2024-09-10 17:19] LABS: Resp Rate 24
[2024-09-10 17:20] LABS: PCO2 Arterial 32 mmHg (35-45); PO2 Arterial 97 mmHg (80-100)
[2024-09-10] MEDS: Vancomycin 750 MG in NS 0.9% 250 ML IVPB SCH (17:24)
[2024-09-10] MEDS: fentaNYL INFUSION 50 mcg/mL VL 2,500 MCG/50 ML VIAL IV SCH (18:02)
[2024-09-10] MEDS: ZOSYN 3.375 GM Q8H per EXTENDED INFUSION IV SCH (18:20)
[2024-09-10] MEDS: Famotidine IV 10 MG/ML 2 ml VIAL (20 mg) IV SLOW PU SCH (19:19)
[2024-09-10 19:52] LABS: Hematocrit 34.2 % (35-45); Hemoglobin 11.5 g/dL (11.5-14.3); Mean Corpuscular Hemoglobin 27.5 pg (27-33); Mean Corpuscular Hgb Conc 33.5 g/dL (31-36); Mean Corpuscular Volume 82.2 fL (80-97); Mean Platelet Volume 8.9 fL (7.5-11.2); Platelet Count 57 10^3/uL (150-450); Red Blood Count 4.16 10^6/uL (3.63-4.92); Red Cell Distribution Width 13.8 % (12-17); White Blood Count 37.1 10^3/uL (3.8-11.8)
[2024-09-10 20:06] LABS: Calcium 7.1 mg/dL (8.6-10.3); Creatinine, Serum 4.35 mg/dL (0.51-0.95); eGFR CKD-EPI 12.3 (>60)
[2024-09-10 20:35] LABS: Albumin 2.2 g/dL (3.2-5.2); Albumin/Globulin Ratio 1.2 (1-3); Direct Bilirubin 2.2 mg/dL (0.03-0.18); Globulin 1.8 g/dL (2-4); Indirect Bilirubin 1.1 mg/dL (0.3-1.0); Total Bilirubin 3.3 mg/dL (0.2-1.0)
[2024-09-10 20:42] LABS: INR 1.45 (0.85-1.14)
[2024-09-10 21:34] LABS: ABS Basophils 0.1 10^3/uL (0.0-0.1); ABS Eosinophils 0.6 10^3/uL (0.0-0.5); ABS Lymphocytes 3.5 10^3/uL (1.0-4.8); ABS Monocytes 1.3 10^3/uL (0.0-0.9); ABS Neutrophils 36.4 10^3/uL (1.5-7.6); ABS Nucleated RBC 0.12 10^3/ul; Eosinophil % 1.4 %; Lymphocyte % 8.5 %; Mean Platelet Volume 8.3 fL (7.5-11.2); Nucleated Red Blood Cells % 0.3 %/100WBC (0.0-0.8); Platelet Count 62 10^3/uL (150-450)
[2024-09-10 22:07] LABS: ABS Basophils 0.1 10^3/uL (0.0-0.1); ABS Eosinophils 1.1 10^3/uL (0.0-0.5); ABS Lymphocytes 3.2 10^3/uL (1.0-4.8); ABS Monocytes 1.1 10^3/uL (0.0-0.9); ABS Neutrophils 31.6 10^3/uL (1.5-7.6); Lymphocyte % 8.6 %; Nucleated Red Blood Cells % 0.3 %/100WBC (0.0-0.8)
[2024-09-10] MEDS: Enoxaparin 30 MG/0.3 ML SYR SUBCUT SCH (22:08)
[2024-09-11] MEDS ORDERED: COWS Protocol Daily Order Reminder FOLLOW UP SCH (05:00)
[2024-09-11 05:05] LABS: Hematocrit 36.8 % (35-45); Hemoglobin 12.7 g/dL (11.5-14.3); Mean Corpuscular Hgb Conc 34.4 g/dL (31-36); Mean Corpuscular Volume 81.3 fL (80-97); Mean Platelet Volume 9.8 fL (7.5-11.2); Platelet Count 53 10^3/uL (150-450); Red Blood Count 4.53 10^6/uL (3.63-4.92); Red Cell Distribution Width 13.9 % (12-17); White Blood Count 32.7 10^3/uL (3.8-11.8)
[2024-09-11 05:20] LABS: Calcium 7.1 mg/dL (8.6-10.3); Creatinine, Serum 4.84 mg/dL (0.51-0.95); Total Bilirubin 3.1 mg/dL (0.2-1.0); eGFR CKD-EPI 10.8 (>60)
[2024-09-11 05:50] LABS: Potassium 4.2 mmol/L (3.5-5.0)
[2024-09-11 05:52] LABS: Activated Partial Thrombo Time 45.8 seconds (26.0-38.0); INR 1.25 (0.85-1.14)
[2024-09-11 06:04] LABS: ABS Basophils 0.1 10^3/uL (0.0-0.1); ABS Eosinophils 0.7 10^3/uL (0.0-0.5); ABS Lymphocytes 3.7 10^3/uL (1.0-4.8); ABS Neutrophils 27.2 10^3/uL (1.5-7.6); ABS Nucleated RBC 0.08 10^3/ul; Eosinophil % 2.1 %; Lymphocyte % 11.3 %; Nucleated Red Blood Cells % 0.2 %/100WBC (0.0-0.8); Platelet Count 53 10^3/ul (150-450)
[2024-09-11 06:31] LABS: Schistocytes ABSENT
[2024-09-11] MEDS: VASOPRESSIN IVPREMIX BTL 40 UNIT/100 ML BTL IV SCH (08:29)
[2024-09-11] MEDS: VASOPRESSIN IVPREMIX BTL 40 UNIT/100 ML BTL IV ONE (08:31)
[2024-09-11 08:42] LABS: PCO2 Arterial 31 mmHg (35-45); PO2 Arterial 112 mmHg (80-100)
[2024-09-11] MEDS: Hydrocortisone INJ 100 MG/2ML 2 ML VIAL IV ONE (08:52)
[2024-09-11] MEDS: Norepinephrine 16 MG/250mL NS 16,000 MCG/250 ML BAG IV SCH (08:57)
[2024-09-11] MEDS ORDERED: Vancomycin per Pharmacy 1 EA NOTE FOLLOW UP SCH (09:00)
[2024-09-11] MEDS ORDERED: Acetaminophen IV 1 GM/100ML 1,000 MG/100 ML BAG IV PRN (09:02)
[2024-09-11 09:42] LABS: Osmolality Serum 273 mOsm/kg (275-295)
[2024-09-11] MEDS ORDERED: WATER IV SCH (11:14)
[2024-09-11] MEDS ORDERED: DEXTROSE 40% IV SCH (11:14)
[2024-09-11 12:39] LABS: Platelet Count 59 10^3/ul (150-450)
[2024-09-11 12:44] LABS: Calcium 7.4 mg/dL (8.6-10.3); Creatinine, Serum 5.34 mg/dL (0.51-0.95); Potassium 5.6 mmol/L (3.5-5.0); eGFR CKD-EPI 9.6 (>60)
[2024-09-11 12:45] LABS: Activated Partial Thrombo Time 41.5 seconds (26.0-38.0)
[2024-09-11] MEDS: Hydrocortisone INJ 100 MG/2ML 2 ML VIAL IV SCH (13:57)
[2024-09-11] MEDS: DEXTROSE 50% IV SCH (14:41)
[2024-09-11] MEDS: EPINEPHrine 1 MG/ML MDV 5 MG in D5W 250 ml BAG 245 ML IV SCH (16:32)
[2024-09-11] MEDS: Iodixanol 320 (CONTRAST) 100 ML SDV IV ONE (16:32)
[2024-09-11 17:20] LABS: Schistocytes ABSENT
[2024-09-11 18:36] LABS: Calcium 7.1 mg/dL (8.6-10.3); Creatinine, Serum 5.61 mg/dL (0.51-0.95); Potassium 6.6 mmol/L (3.5-5.0); eGFR CKD-EPI 9.1 (>60)
[2024-09-11 21:10] LABS: Calcium 7.4 mg/dL (8.6-10.3); Creatinine, Serum 5.95 mg/dL (0.51-0.95); Potassium 6.5 mmol/L (3.5-5.0); eGFR CKD-EPI 8.4 (>60)
[2024-09-11] MEDS ORDERED: NS 0.9% 1000 ml BAG 100 ML IV PRN (23:00)
[2024-09-11] MEDS ORDERED: NS 0.9% 1000 ml BAG 200 ML IV PRN (23:00)
[2024-09-11 23:45] LABS: ABS Eosinophils 0.4 10^3/uL (0.0-0.5); ABS Lymphocytes 0.9 10^3/uL (1.0-4.8); ABS Monocytes 0.5 10^3/uL (0.0-0.9); ABS Neutrophils 26.3 10^3/uL (1.5-7.6); ABS Nucleated RBC 0.07 10^3/ul; Eosinophil % 1.3 %; Hematocrit 36.3 % (35-45); Hemoglobin 12.1 g/dL (11.5-14.3); Lymphocyte % 3.3 %; Mean Corpuscular Hemoglobin 27.4 pg (27-33); Mean Corpuscular Hgb Conc 33.3 g/dL (31-36); Mean Corpuscular Volume 82.4 fL (80-97); Mean Platelet Volume 9.9 fL (7.5-11.2); Nucleated Red Blood Cells % 0.3 %/100WBC (0.0-0.8); Platelet Count 63 10^3/uL (150-450); Red Cell Distribution Width 13.9 % (12-17); White Blood Count 28.2 10^3/uL (3.8-11.8)
[2024-09-11] MEDS: CALCIUM GLUCONATE 1GM/50ML NS 1 GM/50 ML BAG IV SCH (23:54)
[2024-09-12 00:52] LABS: Calcium 7.4 mg/dL (8.6-10.3); Creatinine, Serum 6.27 mg/dL (0.51-0.95); Potassium 6.2 mmol/L (3.5-5.0); eGFR CKD-EPI 7.9 (>60)
[2024-09-12 00:53] LABS: ABS Basophils 0.1 10^3/uL (0.0-0.1); ABS Eosinophils 0.2 10^3/uL (0.0-0.5); ABS Lymphocytes 0.9 10^3/uL (1.0-4.8); ABS Monocytes 0.5 10^3/uL (0.0-0.9); ABS Neutrophils 27.8 10^3/uL (1.5-7.6); ABS Nucleated RBC 0.06 10^3/ul; Eosinophil % 0.6 %; Hematocrit 34.8 % (35-45); Hemoglobin 11.7 g/dL (11.5-14.3); Mean Corpuscular Hemoglobin 27.2 pg (27-33); Mean Corpuscular Hgb Conc 33.5 g/dL (31-36); Mean Corpuscular Volume 81.3 fL (80-97); Mean Platelet Volume 9.9 fL (7.5-11.2); Nucleated Red Blood Cells % 0.2 %/100WBC (0.0-0.8); Platelet Count 62 10^3/uL (150-450); Red Blood Count 4.28 10^6/uL (3.63-4.92); White Blood Count 29.5 10^3/uL (3.8-11.8)
[2024-09-12 02:20] LABS: Hepatitis B Surface Antigen Nonreactive (Nonreactive)
[2024-09-12 02:37] LABS: Hepatitis B Surface Ab Not Immune (Immune)
[2024-09-12] MEDS: Heparin 1,000 UNIT/ML 10 ml (10,000 UNITS) CATHLAB/DIALYSIS DIALYSIS PRN (03:07)
[2024-09-12 03:18] LABS: HIV 4th Generation Nonreactive (Nonreactive)
[2024-09-12 04:12] LABS: Hepatitis A Ab IgM Negative (Negative)
[2024-09-12 04:13] LABS: Hepatitis B Core IgM Nonreactive (Nonreactive)
[2024-09-12 04:17] LABS: Calcium 7.9 mg/dL (8.6-10.3); Creatinine, Serum 6.42 mg/dL (0.51-0.95); Magnesium 1.9 mg/dL (1.9-2.7); Phosphorus 6.4 mg/dL (2.5-5.0); Potassium 6.3 mmol/L (3.5-5.0); Total Protein 4.4 g/dL (6.4-8.9); eGFR CKD-EPI 7.7 (>60)
[2024-09-12 04:18] LABS: Albumin/Globulin Ratio 0.8 (1-3); Globulin 2.4 g/dL (2-4); Total Bilirubin 2.5 mg/dL (0.2-1.0)
[2024-09-12 04:22] LABS: PCO2 Arterial 30 mmHg (35-45); PO2 Arterial 107 mmHg (80-100)
[2024-09-12 04:25] LABS: Hepatitis C Antibody Negative (Negative)
[2024-09-12 05:30] LABS: ABS Eosinophils 0.1 10^3/uL (0.0-0.5); ABS Lymphocytes 1.1 10^3/uL (1.0-4.8); ABS Monocytes 0.5 10^3/uL (0.0-0.9); ABS Neutrophils 29.9 10^3/uL (1.5-7.6); ABS Nucleated RBC 0.04 10^3/ul; Eosinophil % 0.3 %; Hematocrit 33.2 % (35-45); Hemoglobin 11.2 g/dL (11.5-14.3); Lymphocyte % 3.4 %; Mean Corpuscular Hemoglobin 27.4 pg (27-33); Mean Corpuscular Hgb Conc 33.7 g/dL (31-36); Mean Corpuscular Volume 81.5 fL (80-97); Mean Platelet Volume 9.7 fL (7.5-11.2); Nucleated Red Blood Cells % 0.1 %/100WBC (0.0-0.8); Platelet Count 63 10^3/uL (150-450); RBC Morphology Normal (Normal); Red Blood Count 4.08 10^6/uL (3.63-4.92); Red Cell Distribution Width 14.3 % (12-17); White Blood Count 31.6 10^3/uL (3.8-11.8)
[2024-09-12 10:15] LABS: Albumin 1.8 g/dL (3.2-5.2); Albumin/Globulin Ratio 0.8 (1-3); Calcium 7.6 mg/dL (8.6-10.3); Creatinine, Serum 6.61 mg/dL (0.51-0.95); Direct Bilirubin 1.3 mg/dL (0.03-0.18); Globulin 2.2 g/dL (2-4); Indirect Bilirubin 0.8 mg/dL (0.3-1.0); Magnesium 1.9 mg/dL (1.9-2.7); Total Bilirubin 2.1 mg/dL (0.2-1.0); Vancomycin Random 18.8 mcg/mL; eGFR CKD-EPI 7.4 (>60)
[2024-09-12] MEDS: Vancomycin Random Level NOTE FOLLOW UP ONE (10:54)
[2024-09-12] MEDS: Famotidine IV 10 MG/ML 2 ml VIAL (20 mg) IV SLOW PU SCH (10:56)
[2024-09-12] MEDS: Vancomycin 750 MG in NS 0.9% 250 ML IVPB ONE (17:05)
[2024-09-12 17:19] LABS: Hematocrit 27.1 % (35-45); Hemoglobin 9.3 g/dL (11.5-14.3); Mean Corpuscular Hemoglobin 27.6 pg (27-33); Mean Corpuscular Hgb Conc 34.3 g/dL (31-36); Mean Corpuscular Volume 80.4 fL (80-97); Red Blood Count 3.36 10^6/uL (3.63-4.92); Red Cell Distribution Width 14.1 % (12-17); White Blood Count 21.7 10^3/uL (3.8-11.8)
[2024-09-12 17:51] LABS: Albumin 1.7 g/dL (3.2-5.2); Albumin/Globulin Ratio 0.9 (1-3); Calcium 6.9 mg/dL (8.6-10.3); Creatinine, Serum 3.46 mg/dL (0.51-0.95); Total Bilirubin 1.6 mg/dL (0.2-1.0); Total Protein 3.7 g/dL (6.4-8.9); eGFR CKD-EPI 16.2 (>60)
[2024-09-12 18:01] LABS: ABS Basophils 0.1 10^3/uL (0.0-0.1); ABS Lymphocytes 1.3 10^3/uL (1.0-4.8); ABS Monocytes 0.4 10^3/uL (0.0-0.9); ABS Neutrophils 19.9 10^3/uL (1.5-7.6); ABS Nucleated RBC 0.04 10^3/ul; Nucleated Red Blood Cells % 0.2 %/100WBC (0.0-0.8); Platelet Count 43 10^3/uL (150-450)
[2024-09-12] MEDS: D5W 500 ml BAG 500 ML IV SCH (18:43)
[2024-09-12 21:49] LABS: Creatinine, Serum 3.8 mg/dL (0.51-0.95); Potassium 3.9 mmol/L (3.5-5.0); eGFR CKD-EPI 14.4 (>60)
[2024-09-13 03:27] LABS: PCO2 Arterial 29 mmHg (35-45); PO2 Arterial 159 mmHg (80-100)
[2024-09-13 03:29] LABS: Albumin 1.8 g/dL (3.2-5.2); Albumin/Globulin Ratio 0.9 (1-3); Calcium 6.9 mg/dL (8.6-10.3); Creatinine, Serum 4.15 mg/dL (0.51-0.95); Magnesium 1.8 mg/dL (1.9-2.7); Phosphorus 5.5 mg/dL (2.5-5.0); Total Bilirubin 1.3 mg/dL (0.2-1.0); Total Protein 3.8 g/dL (6.4-8.9); Vancomycin Random 23.3 mcg/mL
[2024-09-13 03:32] LABS: ABS Lymphocytes 1.1 10^3/uL (1.0-4.8); ABS Monocytes 0.6 10^3/uL (0.0-0.9); ABS Neutrophils 21.2 10^3/uL (1.5-7.6); ABS Nucleated RBC 0.03 10^3/ul; Eosinophil % 0.1 %; Hematocrit 24.6 % (35-45); Hemoglobin 8.5 g/dL (11.5-14.3); Lymphocyte % 4.9 %; Mean Corpuscular Hemoglobin 27.7 pg (27-33); Mean Corpuscular Hgb Conc 34.5 g/dL (31-36); Mean Corpuscular Volume 80.3 fL (80-97); Mean Platelet Volume 10.3 fL (7.5-11.2); Nucleated Red Blood Cells % 0.1 %/100WBC (0.0-0.8); Platelet Count 38 10^3/uL (150-450); Red Blood Count 3.06 10^6/uL (3.63-4.92); Red Cell Distribution Width 14.2 % (12-17)
[2024-09-13] MEDS: DEXTROSE 50% IV SCH (04:28)
[2024-09-13] MEDS: Vancomycin Random Level NOTE FOLLOW UP ONE (06:26)
[2024-09-13] MEDS: Vancomycin 750 MG in NS 0.9% 250 ML IVPB ONE (15:54)
[2024-09-13 16:46] LABS: Calcium 7.1 mg/dL (8.6-10.3); Creatinine, Serum 2.83 mg/dL (0.51-0.95); Potassium 3.6 mmol/L (3.5-5.0); eGFR CKD-EPI 20.6 (>60)
[2024-09-13 17:06] LABS: Schistocytes ABSENT
[2024-09-13 17:09] LABS: Activated Partial Thrombo Time 26.6 seconds (26.0-38.0)
[2024-09-13 17:11] LABS: Platelet Count 30 10^3/ul (150-450)
[2024-09-13 18:47] LABS: ABS Basophils 0.1 10^3/uL (0.0-0.1); ABS Lymphocytes 1.1 10^3/uL (1.0-4.8); ABS Monocytes 0.7 10^3/uL (0.0-0.9); ABS Neutrophils 11.6 10^3/uL (1.5-7.6); ABS Nucleated RBC 0.02 10^3/ul; Hematocrit 23.2 % (35-45); Lymphocyte % 8.2 %; Mean Corpuscular Hemoglobin 27.7 pg (27-33); Mean Corpuscular Hgb Conc 34.4 g/dL (31-36); Mean Corpuscular Volume 80.4 fL (80-97); Mean Platelet Volume 10.2 fL (7.5-11.2); Nucleated Red Blood Cells % 0.1 %/100WBC (0.0-0.8); Platelet Count 32 10^3/uL (150-450); Red Blood Count 2.89 10^6/uL (3.63-4.92); Red Cell Distribution Width 14.1 % (12-17); White Blood Count 13.5 10^3/uL (3.8-11.8)
[2024-09-14 04:55] LABS: Immature Retic Fraction 0.65
[2024-09-14 05:06] LABS: ABS Lymphocytes 1.1 10^3/uL (1.0-4.8); ABS Monocytes 0.9 10^3/uL (0.0-0.9); ABS Neutrophils 11.2 10^3/uL (1.5-7.6); ABS Nucleated RBC 0.02 10^3/ul; Eosinophil % 0.1 %; Hematocrit 22.6 % (35-45); Hematocrit for Retic CNT 22.6 % (35-45); Hemoglobin 7.8 g/dL (11.5-14.3); Lymphocyte % 8.5 %; Mean Corpuscular Hgb Conc 34.7 g/dL (31-36); Mean Corpuscular Volume 80.7 fL (80-97); Mean Platelet Volume 10.5 fL (7.5-11.2); Nucleated Red Blood Cells % 0.1 %/100WBC (0.0-0.8); Platelet Count 38 10^3/uL (150-450); Red Cell Distribution Width 14.3 % (12-17); White Blood Count 13.3 10^3/uL (3.8-11.8)
[2024-09-14 05:09] LABS: Calcium 7.3 mg/dL (8.6-10.3); Creatinine, Serum 3.8 mg/dL (0.51-0.95); Globulin 2.1 g/dL (2-4); Magnesium 1.9 mg/dL (1.9-2.7); Phosphorus 5.2 mg/dL (2.5-5.0); Potassium 3.9 mmol/L (3.5-5.0); Total Bilirubin 0.8 mg/dL (0.2-1.0); Total Protein 4.1 g/dL (6.4-8.9); Vancomycin Random 29.6 mcg/mL; eGFR CKD-EPI 14.4 (>60)
[2024-09-14 07:01] LABS: Resp Rate 16
[2024-09-14 07:08] LABS: PCO2 Arterial 35 mmHg (35-45); PO2 Arterial 91 mmHg (80-100)
[2024-09-14] MEDS: Vancomycin Random Level NOTE FOLLOW UP ONE (07:37)
[2024-09-14] MEDS: fentaNYL 100 mcg/2 ml 50 MCG/ML VIAL IV SLOW PU PRN (15:39)
[2024-09-15 02:49] LABS: Calcium 7.4 mg/dL (8.6-10.3); Creatinine, Serum 5.45 mg/dL (0.51-0.95); Magnesium 2.3 mg/dL (1.9-2.7); Potassium 3.9 mmol/L (3.5-5.0); eGFR CKD-EPI 9.4 (>60)
[2024-09-15 03:23] LABS: Hematocrit 22.3 % (35-45); Hemoglobin 7.6 g/dL (11.5-14.3); Mean Corpuscular Hemoglobin 27.7 pg (27-33); Mean Corpuscular Hgb Conc 34.1 g/dL (31-36); Mean Corpuscular Volume 81.2 fL (80-97); Mean Platelet Volume 10.1 fL (7.5-11.2); Platelet Count 63 10^3/uL (150-450); Red Blood Count 2.75 10^6/uL (3.63-4.92); Red Cell Distribution Width 14.5 % (12-17); White Blood Count 10.5 10^3/uL (3.8-11.8)
[2024-09-15 03:43] LABS: ABS Lymphocytes 1.3 10^3/uL (1.0-4.8); ABS Monocytes 0.9 10^3/uL (0.0-0.9); ABS Neutrophils 8.2 10^3/uL (1.5-7.6); ABS Nucleated RBC 0.02 10^3/ul; Eosinophil % 0.1 %; Lymphocyte % 12.4 %; Nucleated Red Blood Cells % 0.2 %/100WBC (0.0-0.8)
[2024-09-15] MEDS: Midazolam 2 mg/2 ml VIAL 1 mg/ml 2 ml VIAL (2 mg) IV SLOW PU PRN (09:39)
[2024-09-15] MEDS: Pantoprazole VIAL 40 MG VIAL IV SCH ×2 (10:47→20:31)
[2024-09-15] MEDS ORDERED: Senna TAB 8.6 mg TAB PO SCH (11:00)
[2024-09-15] MEDS ORDERED: Methylnaltrexone 150 MG TAB PO SCH (11:00)
[2024-09-15] MEDS: Methylnaltrexone SQ (NF) 12 MG/0.6 ML VIAL SUBCUT SCH (12:11)
[2024-09-15 12:51] LABS: Hematocrit 23.8 % (35-45); Hemoglobin 8.2 g/dL (11.5-14.3); Mean Corpuscular Hemoglobin 27.8 pg (27-33); Mean Corpuscular Hgb Conc 34.4 g/dL (31-36); Mean Corpuscular Volume 80.8 fL (80-97); Mean Platelet Volume 9.7 fL (7.5-11.2); Platelet Count 81 10^3/uL (150-450); Red Blood Count 2.95 10^6/uL (3.63-4.92); Red Cell Distribution Width 14.5 % (12-17); White Blood Count 12.3 10^3/uL (3.8-11.8)
[2024-09-15 13:56] LABS: ABS Lymphocytes 1.3 10^3/uL (1.0-4.8); ABS Monocytes 1.2 10^3/uL (0.0-0.9); ABS Neutrophils 9.8 10^3/uL (1.5-7.6); ABS Nucleated RBC 0.01 10^3/ul; Lymphocyte % 10.8 %; Nucleated Red Blood Cells % 0.1 %/100WBC (0.0-0.8)
[2024-09-15] MEDS ORDERED: fentaNYL 100 mcg/2 ml 50 MCG/ML VIAL ONE (15:16)
[2024-09-15] MEDS ORDERED: Naloxone 0.4 mg VIAL 0.4 mg/ml 1 ml VIAL ONE (15:16)
[2024-09-15] MEDS ORDERED: Flumazenil 0.5 mg/5 ml 0.1 MG/ML 5 ml VIAL ONE (15:16)
[2024-09-15] MEDS ORDERED: Midazolam 5 mg/5 ml VIAL 1 mg/ml 5 ml VIAL (5 mg) ONE ×2 (15:17→16:07)
[2024-09-15] MEDS ORDERED: Sulfur Hexaflouride MICROSPHR 25 MG VIAL ONE (15:17)
[2024-09-15] MEDS: Albumin Human 25% 25 GM/100 ML BTL IV PRN (16:51)
[2024-09-15] MEDS: Norepinephrine 4 MG/250mL D5W 4,000 MCG/250 ML BAG IV SCH (18:06)
[2024-09-16 04:08] LABS: Hematocrit 21.1 % (35-45); Hemoglobin 7.3 g/dL (11.5-14.3); Mean Corpuscular Hemoglobin 27.9 pg (27-33); Mean Corpuscular Hgb Conc 34.6 g/dL (31-36); Mean Corpuscular Volume 80.7 fL (80-97); Red Blood Count 2.61 10^6/uL (3.63-4.92); Red Cell Distribution Width 14.2 % (12-17); White Blood Count 10.5 10^3/uL (3.8-11.8)
[2024-09-16 04:46] LABS: Calcium 7.8 mg/dL (8.6-10.3); Creatinine, Serum 4.11 mg/dL (0.51-0.95); Phosphorus 5.4 mg/dL (2.5-5.0); Potassium 3.8 mmol/L (3.5-5.0); eGFR CKD-EPI 13.1 (>60)
[2024-09-16 04:53] LABS: Vancomycin Random 17.8 mcg/mL
[2024-09-16 05:19] LABS: ABS Lymphocytes 1.3 10^3/uL (1.0-4.8); ABS Monocytes 0.9 10^3/uL (0.0-0.9); ABS Neutrophils 8.2 10^3/uL (1.5-7.6); ABS Nucleated RBC 0.01 10^3/ul; Eosinophil % 0.2 %; Lymphocyte % 12.8 %; Mean Platelet Volume 9.4 fL (7.5-11.2); Nucleated Red Blood Cells % 0.1 %/100WBC (0.0-0.8); Platelet Count 100 10^3/uL (150-450)
[2024-09-16] MEDS: Vancomycin Random Level NOTE FOLLOW UP ONE (07:05)
[2024-09-16 08:08] LABS: PCO2 Arterial 41 mmHg (35-45); PO2 Arterial 101 mmHg (80-100)
[2024-09-16] MEDS: Vancomycin 750 MG in NS 0.9% 250 ML IVPB ONE (16:41)
[2024-09-16] MEDS: Hydrocortisone INJ 100 MG/2ML 2 ML VIAL IV SCH (20:38)
[2024-09-16] MEDS ORDERED: Lorazepam PYXIS KEY PRN (22:15)
[2024-09-16] MEDS: LORazepam 2 mg VIAL 1 ml IV PUSH PRN (23:00)
[2024-09-16] MEDS: Gadoteridol (CONTRAST) 279.3 MG/ML 10 ML IV ONE (23:56)
[2024-09-17 04:05] LABS: Hemoglobin 7.8 g/dL (11.5-14.3); Mean Corpuscular Hemoglobin 27.7 pg (27-33); Mean Corpuscular Hgb Conc 33.7 g/dL (31-36); Mean Corpuscular Volume 82.2 fL (80-97); Mean Platelet Volume 9.5 fL (7.5-11.2); Platelet Count 204 10^3/uL (150-450); Red Cell Distribution Width 14.4 % (12-17); White Blood Count 17.1 10^3/uL (3.8-11.8)
[2024-09-17 04:34] LABS: Creatinine, Serum 3.87 mg/dL (0.51-0.95); Magnesium 1.9 mg/dL (1.9-2.7); Potassium 3.9 mmol/L (3.5-5.0); eGFR CKD-EPI 14.1 (>60)
[2024-09-17 04:59] LABS: ABS Basophils 0.1 10^3/uL (0.0-0.1); ABS Lymphocytes 2.2 10^3/uL (1.0-4.8); ABS Neutrophils 14.8 10^3/uL (1.5-7.6); ABS Nucleated RBC 0.01 10^3/ul; Eosinophil % 0.2 %; Lymphocyte % 12.6 %; Nucleated Red Blood Cells % 0.1 %/100WBC (0.0-0.8)
[2024-09-17] MEDS: Magnesium Sulfate 2 gm BAG 2 GM/50 ML BAG IVPB ONE (06:06)
[2024-09-17] MEDS: Potassium Chlor 20 meq TAB.ER PO ONE (06:12)
[2024-09-18] MEDS: D10W 500 ml BAG 500 ML IV SCH (05:36)
[2024-09-18 06:03] LABS: Hematocrit 25.5 % (35-45); Hemoglobin 8.5 g/dL (11.5-14.3); Mean Corpuscular Hemoglobin 27.4 pg (27-33); Mean Corpuscular Hgb Conc 33.4 g/dL (31-36); Mean Corpuscular Volume 82.1 fL (80-97); Mean Platelet Volume 9.2 fL (7.5-11.2); Platelet Count 323 10^3/uL (150-450); Red Cell Distribution Width 14.4 % (12-17); White Blood Count 16.5 10^3/uL (3.8-11.8)
[2024-09-18 06:22] LABS: Albumin 2.5 g/dL (3.2-5.2); Albumin/Globulin Ratio 1.1 (1-3); Creatinine, Serum 5.72 mg/dL (0.51-0.95); Globulin 2.3 g/dL (2-4); Magnesium 2.5 mg/dL (1.9-2.7); Phosphorus 6.1 mg/dL (2.5-5.0); Potassium 3.6 mmol/L (3.5-5.0); Total Bilirubin 0.6 mg/dL (0.2-1.0); Total Protein 4.8 g/dL (6.4-8.9); Vancomycin Random 21.6 mcg/mL; eGFR CKD-EPI 8.8 (>60)
[2024-09-18 07:06] LABS: ABS Eosinophils 0.5 10^3/uL (0.0-0.5); ABS Lymphocytes 3.3 10^3/uL (1.0-4.8); ABS Monocytes 0.9 10^3/uL (0.0-0.9); ABS Neutrophils 11.9 10^3/uL (1.5-7.6); ABS Nucleated RBC 0.01 10^3/ul; Eosinophil % 2.8 %; Lymphocyte % 19.9 %; Nucleated Red Blood Cells % 0.1 %/100WBC (0.0-0.8)
[2024-09-18 07:07] LABS: RBC Morphology Normal (Normal)
[2024-09-18] MEDS ORDERED: DEXTROSE 50% IV SCH (09:00)
[2024-09-18] MEDS ORDERED: WATER IV SCH (09:00)
[2024-09-18] MEDS: Vancomycin Random Level NOTE FOLLOW UP ONE (12:33)
[2024-09-18] MEDS: DEXTROSE 50% IV SCH (12:33)
[2024-09-18] MEDS: Vancomycin 750 MG in NS 0.9% 250 ML IVPB ONE (16:21)
[2024-09-20 06:23] LABS: Hemoglobin 7.4 g/dL (11.5-14.3); Mean Corpuscular Hemoglobin 28.6 pg (27-33); Mean Corpuscular Hgb Conc 35.1 g/dL (31-36); Mean Corpuscular Volume 81.5 fL (80-97); Mean Platelet Volume 8.7 fL (7.5-11.2); Platelet Count 431 10^3/uL (150-450); Red Blood Count 2.58 10^6/uL (3.63-4.92); Red Cell Distribution Width 14.9 % (12-17); White Blood Count 11.2 10^3/uL (3.8-11.8)
[2024-09-20 06:41] LABS: Calcium 7.8 mg/dL (8.6-10.3); Creatinine, Serum 6.53 mg/dL (0.51-0.95); Magnesium 1.9 mg/dL (1.9-2.7); Phosphorus 6.1 mg/dL (2.5-5.0); Potassium 4.5 mmol/L (3.5-5.0); Vancomycin Random 25.2 mcg/mL; eGFR CKD-EPI 7.5 (>60)
[2024-09-20 07:49] LABS: ABS Eosinophils 0.3 10^3/uL (0.0-0.5); ABS Lymphocytes 2.4 10^3/uL (1.0-4.8); ABS Monocytes 0.9 10^3/uL (0.0-0.9); ABS Neutrophils 7.6 10^3/uL (1.5-7.6); ABS Nucleated RBC 0.01 10^3/ul; Eosinophil % 2.8 %; Giant Platelets Present; Hypochromasia 1+; Lymphocyte % 21.1 %; Nucleated Red Blood Cells % 0.1 %/100WBC (0.0-0.8)
[2024-09-20] MEDS: Ondansetron 4 mg VIAL 2 MG/ML 2 ml VIAL IV PRN (09:33)
[2024-09-20] MEDS: Buprenorphine 2 mg SL TAB SL ONE (13:35)
[2024-09-20] MEDS: Vancomycin Random Level NOTE FOLLOW UP ONE (13:36)
[2024-09-20] MEDS: Vancomycin 750 MG in NS 0.9% 250 ML IVPB ONE (16:30)
[2024-09-21] MEDS: Buprenorphine 2 mg SL TAB SL ONE (08:30)
[2024-09-21] MEDS ORDERED: NS 0.9% 1000 ml BAG 200 ML IV PRN (13:26)
[2024-09-21] MEDS ORDERED: Heparin 1,000 UNIT/ML 10 ml (10,000 UNITS) CATHLAB/DIALYSIS DIALYSIS PRN (13:26)
[2024-09-21] MEDS ORDERED: Albumin Human 25% 25 GM/100 ML BTL IV PRN (13:26)
[2024-09-21] MEDS ORDERED: NS 0.9% 1000 ml BAG 100 ML IV PRN (13:26)
[2024-09-22 06:56] LABS: Calcium 7.8 mg/dL (8.6-10.3); Creatinine, Serum 7.29 mg/dL (0.51-0.95); Potassium 4.6 mmol/L (3.5-5.0); eGFR CKD-EPI 6.6 (>60)
[2024-09-22] MEDS: Buprenorphine 2 mg SL TAB SL ONE (09:02)
[2024-09-23 05:54] LABS: ABS Basophils 0.1 10^3/uL (0.0-0.1); ABS Eosinophils 0.2 10^3/uL (0.0-0.5); ABS Lymphocytes 2.5 10^3/uL (1.0-4.8); ABS Monocytes 0.9 10^3/uL (0.0-0.9); ABS Neutrophils 3.6 10^3/uL (1.5-7.6); ABS Nucleated RBC 0.01 10^3/ul; Eosinophil % 2.2 %; Hematocrit 17.7 % (35-45); Hemoglobin 6.2 g/dL (11.5-14.3); Lymphocyte % 34.1 %; Mean Corpuscular Hemoglobin 28.7 pg (27-33); Mean Corpuscular Hgb Conc 34.8 g/dL (31-36); Mean Corpuscular Volume 82.4 fL (80-97); Mean Platelet Volume 7.8 fL (7.5-11.2); Nucleated Red Blood Cells % 0.1 %/100WBC (0.0-0.8); Platelet Count 455 10^3/uL (150-450); Red Blood Count 2.15 10^6/uL (3.63-4.92); Red Cell Distribution Width 15.8 % (12-17); White Blood Count 7.3 10^3/uL (3.8-11.8)
[2024-09-23 06:07] LABS: Calcium 8.2 mg/dL (8.6-10.3); Creatinine, Serum 9.01 mg/dL (0.51-0.95); Magnesium 1.8 mg/dL (1.9-2.7); Phosphorus 6.5 mg/dL (2.5-5.0); Potassium 4.4 mmol/L (3.5-5.0); Vancomycin Random 25.8 mcg/mL; eGFR CKD-EPI 5.1 (>60)
[2024-09-23] MEDS: Vancomycin Random Level NOTE FOLLOW UP ONE (08:11)
[2024-09-23 08:20] LABS: Ferritin 372.9 ng/mL (11-307)
[2024-09-23 08:22] LABS: Folate 5.36 ng/mL (5.90-24.80)
[2024-09-23] MEDS ORDERED: Lidocaine 1% VIAL 10 MG/ML 30 ML VIAL ONE (13:40)
[2024-09-23] MEDS ORDERED: Heparin 5000 UNITS/ML 1 mL VIAL ONE ×2 (13:40→13:43)
[2024-09-23] MEDS ORDERED: Heparin 2 UNITS/ML 1000 mls 1,000 ML IV ONE (13:42)
[2024-09-23] MEDS ORDERED: fentaNYL 100 mcg/2 ml 50 MCG/ML VIAL ONE (13:52)
[2024-09-23] MEDS ORDERED: Midazolam 5 mg/5 ml VIAL 1 mg/ml 5 ml VIAL (5 mg) ONE (13:52)
[2024-09-23] MEDS: Vancomycin 750 MG in NS 0.9% 250 ML IVPB ONE (15:52)
[2024-09-24 06:29] LABS: ABS Basophils 0.2 10^3/uL (0.0-0.1); ABS Eosinophils 0.1 10^3/uL (0.0-0.5); ABS Lymphocytes 2.3 10^3/uL (1.0-4.8); ABS Monocytes 0.8 10^3/uL (0.0-0.9); Eosinophil % 1.8 %; Hematocrit 20.7 % (35-45); Hemoglobin 7.2 g/dL (11.5-14.3); Lymphocyte % 35.6 %; Mean Corpuscular Hemoglobin 28.8 pg (27-33); Mean Corpuscular Hgb Conc 34.7 g/dL (31-36); Mean Corpuscular Volume 82.9 fL (80-97); Mean Platelet Volume 7.5 fL (7.5-11.2); Platelet Count 446 10^3/uL (150-450); Red Cell Distribution Width 16.3 % (12-17); White Blood Count 6.4 10^3/uL (3.8-11.8)
[2024-09-24] MEDS: DEXTROSE 50% IV SCH (09:15)
[2024-09-25 05:32] LABS: ABS Basophils 0.2 10^3/uL (0.0-0.1); ABS Eosinophils 0.1 10^3/uL (0.0-0.5); ABS Lymphocytes 2.3 10^3/uL (1.0-4.8); ABS Monocytes 0.9 10^3/uL (0.0-0.9); ABS Neutrophils 3.1 10^3/uL (1.5-7.6); ABS Nucleated RBC 0.01 10^3/ul; Hematocrit 19.4 % (35-45); Hemoglobin 6.4 g/dL (11.5-14.3); Lymphocyte % 34.9 %; Mean Corpuscular Hemoglobin 27.9 pg (27-33); Mean Corpuscular Hgb Conc 33.2 g/dL (31-36); Mean Platelet Volume 7.3 fL (7.5-11.2); Nucleated Red Blood Cells % 0.1 %/100WBC (0.0-0.8); Platelet Count 408 10^3/uL (150-450); Red Blood Count 2.31 10^6/uL (3.63-4.92); Red Cell Distribution Width 15.9 % (12-17); White Blood Count 6.6 10^3/uL (3.8-11.8)
[2024-09-25 06:14] LABS: Calcium 7.7 mg/dL (8.6-10.3); Creatinine, Serum 7.91 mg/dL (0.51-0.95); Potassium 4.3 mmol/L (3.5-5.0); Vancomycin Random 23.9 mcg/mL
[2024-09-25 07:49] LABS: Total Bilirubin 0.4 mg/dL (0.2-1.0)
[2024-09-25 08:50] LABS: Immature Retic Fraction 0.11
[2024-09-25 09:08] LABS: Corrected Retic Count 0.4 % (0.5-2.2); Hematocrit for Retic CNT 19.4 % (35-45); RBC Retic Count 2.31 10^6/ul (3.63-4.92)
[2024-09-25] MEDS: Lidocaine PATCH 5% PATCH TRANSDERM SCH (15:39)
[2024-09-25] MEDS: Vancomycin 750 MG in NS 0.9% 250 ML IVPB ONE (15:40)
[2024-09-26 07:13] LABS: ABS Basophils 0.2 10^3/uL (0.0-0.1); ABS Eosinophils 0.1 10^3/uL (0.0-0.5); ABS Lymphocytes 2.1 10^3/uL (1.0-4.8); ABS Monocytes 0.9 10^3/uL (0.0-0.9); Eosinophil % 2.1 %; Hematocrit 23.9 % (35-45); Hemoglobin 8.1 g/dL (11.5-14.3); Lymphocyte % 33.9 %; Mean Corpuscular Hemoglobin 29.2 pg (27-33); Mean Corpuscular Volume 85.9 fL (80-97); Mean Platelet Volume 7.7 fL (7.5-11.2); Platelet Count 406 10^3/uL (150-450); Red Blood Count 2.78 10^6/uL (3.63-4.92); Red Cell Distribution Width 16.4 % (12-17); White Blood Count 6.3 10^3/uL (3.8-11.8)
[2024-09-27 05:53] LABS: ABS Basophils 0.1 10^3/uL (0.0-0.1); ABS Eosinophils 0.1 10^3/uL (0.0-0.5); ABS Monocytes 0.8 10^3/uL (0.0-0.9); Eosinophil % 1.8 %; Hematocrit 22.8 % (35-45); Hemoglobin 7.7 g/dL (11.5-14.3); Lymphocyte % 33.4 %; Mean Corpuscular Hemoglobin 28.9 pg (27-33); Mean Corpuscular Hgb Conc 33.9 g/dL (31-36); Mean Corpuscular Volume 85.3 fL (80-97); Mean Platelet Volume 7.2 fL (7.5-11.2); Nucleated Red Blood Cells % 0.1 %/100WBC (0.0-0.8); Platelet Count 347 10^3/uL (150-450); Red Blood Count 2.67 10^6/uL (3.63-4.92); Red Cell Distribution Width 16.4 % (12-17); White Blood Count 6.1 10^3/uL (3.8-11.8)
[2024-09-27] MEDS ORDERED: Vancomycin Random Level NOTE FOLLOW UP ONE ×2 (06:00)
[2024-09-27 06:39] LABS: Calcium 8.3 mg/dL (8.6-10.3); Creatinine, Serum 4.49 mg/dL (0.51-0.95); Potassium 3.6 mmol/L (3.5-5.0); eGFR CKD-EPI 11.8 (>60)
[2024-09-27 17:17] LABS: Urine Appearance Turbid; Urine Bilirubin Negative (Negative); Urine Blood 3+ (Negative); Urine Color Colorless; Urine Glucose Trace (Negative); Urine Ketones Negative (Negative); Urine Nitrite Negative (Negative); Urine Protein 1+ (>=30 mg/dL) (Negative); Urine Specific Gravity 1.005 (1.002-1.030); Urine Urobilinogen Negative (Negative); Urine pH 7.5 (5.0-8.0)
[2024-09-27 17:22] LABS: Urine Bacteria Absent /HPF (Absent); Urine Red Blood Cell 1+(3-5/hpf) /HPF (0-Trace); Urine Squamous Epithelial Cell Present /HPF (Absent); Urine White Blood Cell 3+(>20/hpf) /HPF (0-Trace)
[2024-09-28] MEDS: Polyethylene Glycol 3350 17 GM PACKET PO SCH (10:32)
[2024-09-28 14:12] VITALS: BP 126/72
== END 2024-09-28 17:39 | disposition home or self-care (01) | DRG 561 ==
LOC: MCHOBOUT 15:08 → SUATTDRO 15:08 → MCHOB 15:08 → MEDTELE 18:51 → ICU 09-10 01:50 → MED 09-17 18:35
PROVIDERS: ADMIT Obstetrics & Gynecology; ATTEND Student in an Organized Health Care Education/Training Program